=== PATIENT | male | born 1985 | race Caucasian/White ===

== ENCOUNTER 2019-11-05 20:27 | Emergency (ER) | payer OTHER, SELFPAY ==
--- NOTE | ~2019-11-05 | CT_ITS ---
EXAMINATION: CTA chest PE protocol EXAM DATE: 11/05/2019 22:07 INDICATION: Dyspnea. TECHNIQUE: Spiral CTA of the chest (pulmonary arteries) was performed with 100 cc Omnipaque 350 intr avenous contrast injection. Images were acquired during the pulmonary arterial phase. Coronal maxi mum intensity projection 3D-reconstructions were created by the technologist on dedicated workstation . Axial, coronal and sagittal reformatted images were reviewed. The dose-length product (DLP) for t his examination was 1001.25 mGy-cm. The exposure was tailored according to patient size (auto mA ex posure control), and iterative reconstruction (ASIR) was used as additional dose reduction technique. There is no prior study for comparison. FINDINGS: There are no pulmonary emboli in the 1st through 3rd order (central and interlobar) pulmon anna arteries. Some loss of attenuation in the left basilar segmental pulmonary arteries due to respi ratory motion, but no intraluminal filling defects suspected. No thoracic aortic dissection. The l ungs are clear. There are no pleural or pericardial effusions. Tracheobronchial tree is patent. There is no mediastinal, hilar or axillary lymphadenopathy. There is no pneumothorax. Heart norm al in size. No evidence of coronary arterial calcification. Mild hepatic steatosis and mild scatte red transverse colonic diverticulosis. The bones are unremarkable. IMPRESSION: 1. Limited left basilar segmental evaluation, but no pulmonary emboli are suspected. 2. No acute cardiopulmonary findings. 3. Hepatic steatosis. 4. Colonic diverticulosis. Reviewed, dictated and finalized at location A. IMPRESSION: 1. Limited left basilar segmental evaluation, but no pulmonary emboli are susp ected. 2. No acute cardiopulmonary findings. 3. Hepatic steatosis. 4. Colonic diverticulosis.
--- NOTE | 2019-11-05 20:33 | ED.GENADULT ---
HPI - General Adult General Chief complaint: Shortness of Breath/Dyspnea Stated complaint: sob Time Seen by Provider: 11/05/19 20:28 Source: patient and family Mode of arrival: ambulatory Limitations: no limitations History of Present Illness HPI narrative: Patient is a 34-year-old male who presents for a week long history of intermittent shortness of breath. Patient states that shortness of breath seems to come and go. He denies fever, cough, rhinorrhea, congestion. He saw his primary care physician yesterday and had a negative chest x-ray. Patient without any coronavirus exposures to his knowledge. He has been mostly at home aside from still going to his place of work. No leg swelling, leg pain, recent travel, history of blood clot, redness or rashes. No chest pain. No pleuritic pain. Patient is a daily smoker, his primary care provider prescribed him an albuterol inhaler without much improvement in his symptoms. Patient stated his dyspnea was worse this evening which is why he came to the emergency department. Patient is able to ambulate, able to speak in full sentences without difficulty. No history of asthma, allergies. He denies history of anxiety. Related Data Home Medications Medication Instructions Recorded Confirmed amlodipine benzoate 2.5 mg PO DAILY 11/05/19 Allergies Allergy/AdvReac Type Severity Reaction Status Date / Time No Known Allergies Allergy Verified 11/05/19 20:41 Review of Systems Review of Systems: Narrative: CONSTITUTIONAL: Denies fever, chills, or sweats. EYES: Denies visual changes, redness, or discharge. ENT: Denies rhinorrhea, congestion, sore throat, or otalgia. CARDIOVASCULAR: Denies chest pain, palpitations, or edema. RESPIRATORY: Denies cough, reports intermittent shortness of breath GASTROINTESTINAL: Denies abdominal pain, nausea, vomiting, or diarrhea. GENITOURINARY: Denies dysuria or hematuria. SKIN: Denies rash or itching. MUSCULOSKELETAL: Denies back pain, joint pain, or myalgia. NEUROLOGIC: Denies headache, numbness, or weakness. PSYCHIATRIC: Denies history of anxiety or depression. [facility] Past Medical History Medical History (Updated 11/05/19 @ 22:19 by Breann Atwood MD) Hypertension Surgical History Surgical History (Updated 11/05/19 @ 21:03 by Breann Atwood MD) History of ankle surgery Social History Social History (Updated 11/05/19 @ 21:03 by Breann Atwood MD) Smoking status: Current every day smoker Tobacco type: cigarettes Alcohol intake: current Substance use: never Gender identity (if verbalized by the patient): Male Exam Narrative: Exam Narrative: GENERAL: Awake, alert, conversant HEAD: Normocephalic, atraumatic. EYES: PERRLA and EOMI. ENT: Nares clear, no rhinorrhea or epistaxis. Mucous membranes moist. NECK: Supple. CHEST: No respiratory distress, breathing even and non labored, no wheezing, no rhonchi, no consolidating sounds, no crackles HEART: Regular rate, sinus rhythm ABDOMEN:Non distended, non tender EXTREMITIES: Normal range of motion. No edema. No calf pain or tenderness. SKIN: Warm, dry, no rash. NEURO:No focal deficits. Alert and oriented x3 Course Course Emergency Course: The patient presented for evaluation of shortness of breath. This is been intermittent for the patient, but worsened this evening so he sought care at our emergency department. At the time of assessment, ABCs are intact and vital signs are stable. Pulse ox is 100% on room air. Patient has no respiratory distress, he is able to provide full history, speak in full sentences without any difficulty. I do not appreciate any wheezing, crackles or consolidating sounds on auscultation of his lungs. Laboratory work-up is reassuring. Patient without hypoxemia. Electrolytes are normal. He has a mild transaminitis, evidence of hepatic steatosis on his CT scan, which I did discuss with the patient. CT of the chest shows no evidence of blood clot, e
[2019-11-05 20:37] VITALS: BP 170/102; PULSE 100; RESP 22; TEMP 36.4; O2SAT 100
[2019-11-05 20:43] VITALS: PULSE 105
--- NOTE | 2019-11-05 20:50 | ECG_ITS ---
Measurements Intervals [place] Rate: 97 P: 72 MO: 166 QRS: 67 QRSD: 94 T: 16 QT: 346 QTc: 440 Interpretive Statements SINUS RHYTHM NONSPECIFIC T-WAVE ABNORMALITY- INFERIOR LEADS BASELINE ARTIFACT- I, II, III, AVR, AVL, AVF, V1, V4-V6 BORDERLINE ECG Electronically Signed On 11-06-2019 7:12:36 CDT by Chano Morales D.O.
[2019-11-05 21:00] VITALS: O2SAT 97
[2019-11-05 21:17] LABS: Basophils Percent Auto 0.3 % (0.2-1.2); Eosinophils Absolute Auto 0.2 K/mm3 (0-0.3); Eosinophils Percent Auto 1.9 % (0-4.4); Hematocrit 44.7 % (42.0-52.0); Hemoglobin 15.3 g/dL (14.0-18.0); Immature Granulocyte Absolute 0.02 K/mm3 (0.00-0.031); Immature Granulocyte Percent A 0.3 % (0-0.5); Lymphocytes Percent Auto 40.3 % (18.3-44.2); Mean Corpuscular HGB Conc 34.2 g/dl (32-36); Mean Corpuscular Hemoglobin 30.1 pg (26-34); Mean Platelet Volume 10.2 fl (7.4-10.4); Monocytes Absolute Auto 0.6 K/mm3 (0.1-0.6); Neutrophils Percent Auto 50.2 % (45.5-73.1); Platelet Count Result 245 k/mm3 (150-375); Red Blood Count 5.08 M/mm3 (4.6-6.20); Red Cell Distribution Width 12.3 % (11.5-14.5)
[2019-11-05 21:22] LABS: Alveolar/Arterial O2 Gradient 8.9 mmHg; Base Excess ABG 1.6 mEq/l (+/-2.0); Carboxyhemoglobin 1.1 % THb (0-2.0); Fractional Inspired Oxygen 21 %; HCO3 ABG 24.3 mEq/l (22.0-26.0); Methemoglobin ABG 0.3 %THb (0-1.5); Oxygen Content ABG 20.8 %vol (16.0-22.0); Oxygen Saturation ABG 98.1 % (95.0-100.0); Oxyhemoglobin 96.2 % THb (90.0-100.0); PCO2 ABG 32.9 mmHg (35.0-45.0); PO2 ABG 101.4 mmHg (80.0-100.0); PO2 FiO2 Ratio Arterial Blood 4.83 %; Reduced Hemoglobin 2.4 %THb (0-5.0); Total Hemoglobin 15.3 g/dL (12.0-18.0); pH ABG 7.486 (7.350-7.450)
[2019-11-05 21:23] LABS: Device ROOM AIR; Modified Allen's Test Pass; Site Drawn LEFT RADIAL
[2019-11-05 21:32] LABS: NT Pro B Type Natriuretic Pept 22 PG/ML (5-100)
[2019-11-05 21:37] LABS: Prothrombin Time 12.5 Seconds (11.1-14.7)
[2019-11-05 21:38] LABS: Partial Thromboplastin Time 32.2 SECONDS (22.3-36.8)
[2019-11-05 21:41] VITALS: BP 143/94; PULSE 97; RESP 11; O2SAT 98
[2019-11-05 21:43] LABS: Alanine Aminotransferase 98 U/L (4-50); Albumin Level 4.5 g/dL (3.5-5.1); Alkaline Phosphatase 77 U/L (38-126); Aspartate Amino Transferase 64 U/L (17-59); Bilirubin,Total 0.5 mg/dL (0.2-1.3); Blood Urea Nitrogen 15 mg/dL (9-20); CRP 1.7 mg/dL (<1.0); Calcium 9.3 mg/dL (8.4-10.2); Carbon Dioxide 23 mmol/L (22-30); Chloride 107 mmol/L (98-107); Estimated CRCL calculation 123 ml/min; Estimated Glomerular Filt Rate > 60; Glucose 148 mg/dL (75-110); Lactate Dehydrogenase 510 U/L (313-618); Potassium 3.4 mmol/L (3.4-5.0); Sodium 140 mmol/L (137-145)
[2019-11-05 21:52] LABS: Troponin I < 0.012 ng/mL (0.000-0.034)
[2019-11-05 22:52] VITALS: BP 134/99; PULSE 91; RESP 11; TEMP 36.6; O2SAT 99
== END 2019-11-05 22:54 | disposition home or self-care (01) ==
PROVIDERS: Emergency Provider Emergency Medicine
DX: R06.09 Other forms of dyspnea (principal); I10 Essential (primary) hypertension; F17.210 Nicotine dependence, cigarettes, uncomplicated; R94.31 Abnormal electrocardiogram [ECG] [EKG]; K76.0 Fatty (change of) liver, not elsewhere classified; K57.90 Diverticulosis of intestine, part unspecified, without perforation or abscess without bleeding
CPT/HCPCS: 36415; 36600; 71275; 80053; 82375; 82728; 82805; 83050; 83615; 83880; 84484; 85025; 85610; 85730; 86140; 93005; 99284; Q9967

== ENCOUNTER 2021-02-14 11:35 | Emergency (ER) | payer OTHER, SELFPAY ==
[2021-02-14 11:45] VITALS: BP 146/89; PULSE 95; RESP 18; TEMP 36.3; O2SAT 98
--- NOTE | 2021-02-14 12:36 | ED.URI ---
HPI - URI/Sore Throat General Chief Complaint: Upper Respiratory Infection Stated Complaint: upper respiratory infection Time Seen by Provider: 02/14/21 12:05 Source: patient Mode of arrival: ambulatory Limitations: no limitations History of Present Illness HPI Narrative: Patient here with rest of family to be checked for upper respiratory infection or possibly Covid patient has history of hypertension he is an occasional smoker started having symptoms on Sunday which include respiratory coughing sinus drainage and not feeling well Related Data Home Medications Medication Instructions Recorded Confirmed amlodipine benzoate 2.5 mg PO DAILY 11/05/19 02/14/21 Allergies Allergy/AdvReac Type Severity Reaction Status Date / Time No Known Allergies Allergy Verified 02/14/21 11:43 Review of Systems Review of Systems: Narrative: CONSTITUTIONAL: Denies fever, had chills, sweats. EYES: Denies visual changes, redness, discharge. ENT: Has rhinorrhea, has congestion, sore throat, otalgia. CARDIOVASCULAR: Denies chest pain, palpitations, edema. RESPIRATORY: Denies dyspnea, wheezing, has cough GASTROINTESTINAL: Denies abdominal pain, nausea, vomiting, diarrhea. GENITOURINARY: Denies dysuria, hematuria, abnormal discharge SKIN: Denies rash or itching. NEUROLOGIC: Denies numbness, or focal weakness. PSYCHIATRIC: Denies anxiety or depression. PMFSH Past Medical History Medical History Hypertension Surgical History Surgical History History of ankle surgery Social History Social History Smoking status: Current every day smoker Tobacco type: cigarettes Alcohol intake: current Substance use: never Gender identity (if verbalized by the patient): Male Comments At time of signature, I agree with nursing past medical, surgical, social and family history. There is no relevant family history pertinent to the presenting complaint. Exam Narrative: Exam Narrative: GENERAL: This is a well-nourished, well-developed patient, in mild distress. HEAD: normocephalic, atraumatic. EYES: . Sclera clear/white. Vision is grossly intact. EARS: External ears normal, auditory canals clear on left erythema on right and without drainage, TMs normal without perforation. Hearing grossly intact. NOSE: External nose normal with nasal discharge, nares without redness, has rhinorrhea. THROAT: Mucous membranes moist, posterior pharynx erythema NECK: Neck supple, non-tender CARDIOVASCULAR: Regular rate and rhythm without murmurs, gallops, or rubs. RESPIRATORY: Clear to auscultation. Breath sounds equal bilaterally. No wheezes, rales, or rhonchi. GASTROINTESTINAL: Abdomen soft, SKIN: warm, intact with no suspicious lesions or rash, good texture and turgor. NEURO: awake, alert, and oriented to person, place and time. There were no obvious focal neurologic abnormalities. Steady gait EXTREMITIES: Normal range of motion. BACK: Nontender without deformity Course Course Emergency Course: Patient comes here with upper respiratory symptoms of a cold sinus drainage and not feeling well with some chills on Sunday. Symptoms started on Sunday Covid test negative Started on Tessalon Perles, Mucinex, steroids, can continue DayQuil MDM - URI/Sore Throat Differential Diagnosis Differential diagnosis: Likely upper respiratory infection, otitis media, sinusitis, viral infection, bronchitis, pharyngitis and other Critical Care Time Critical Care Time Critical Care Time: No Discharge Plan Discharge Clinical Impression: Upper respiratory infection Qualifiers: URI type: unspecified URI Qualified Code(s): J06.9 - Acute upper respiratory infection, unspecified Patient Disposition: Home, Self-Care Condition: Stable Instructions: Upper Respiratory Infection (DC) Additional Instr
== END 2021-02-14 12:40 | disposition home or self-care (01) ==
PROVIDERS: Emergency Provider Nurse Practitioner
DX: J06.9 Acute upper respiratory infection, unspecified (principal); Z20.822 Contact with and (suspected) exposure to COVID-19; F17.210 Nicotine dependence, cigarettes, uncomplicated; I10 Essential (primary) hypertension
CPT/HCPCS: 87426; 99213; C9803; G0463

== ENCOUNTER 2021-11-20 10:15 | Emergency (ER) | payer OTHER, SELFPAY ==
--- NOTE | ~2021-11-20 | XR_ITS ---
XR chest 2V DATE: 11/20/2021 10:53 INDICATION: Cough, fever, diminished breath sounds in the lower lobes TECHNIQUE: 2 views COMPARISON: CT pulmonary scan FINDINGS: Normal heart size. No hilar or mediastinal enlargement. No pulmonary infiltrate or consolid ation, pleural effusion or pulmonary vascular congestion or pneumothorax. IMPRESSION: No active cardiopulmonary disease Reviewed, dictated and finalized at location A.
[2021-11-20 10:25] VITALS: BP 168/92; PULSE 80; RESP 18; TEMP 36.3; O2SAT 98
--- NOTE | 2021-11-20 10:28 | ED.GENADULT ---
HPI - General Adult General Chief complaint: Upper Respiratory Infection Stated complaint: cold symptoms Time Seen by Provider: 11/20/21 10:28 Source: patient Mode of arrival: ambulatory Limitations: no limitations History of Present Illness HPI narrative: 36-year-old male patient presents to the [facility] with complaints of cold symptoms for the past 3 days. Patient states he was running a fever as high as 101 about 3 days ago with cough, congestion and runny nose. Patient states he is vaccinated against COVID but has not tested himself for COVID. Patient was sent home from work due to the symptoms. Colleague denies any fevers today states he still has congestion. Denies any chest pain or shortness of breath. Patient does have history of smoking. Related Data Home Medications Medication Instructions Recorded Confirmed No Home Medications 11/20/21 11/20/21 Allergies Allergy/AdvReac Type Severity Reaction Status Date / Time No Known Allergies Allergy Verified 11/20/21 10:34 Review of Systems Review of Systems: CONSTITUTIONAL: Positive subjective fever, chills, or sweats. EYES: Denies visual changes, redness, or discharge. ENT: Positive rhinorrhea, congestion, denies sore throat, or otalgia. CARDIOVASCULAR: Denies chest pain, palpitations, or edema. RESPIRATORY: Positive cough, denies dyspnea. GASTROINTESTINAL: Denies abdominal pain, nausea, vomiting, or diarrhea. GENITOURINARY: Denies dysuria or hematuria. SKIN: Denies rash or itching. MUSCULOSKELETAL: Denies back pain, joint pain, or myalgia. NEUROLOGIC: Denies headache, numbness, or weakness. PSYCHIATRIC: Denies anxiety or depression. [facility] Past Medical History Medical History Hypertension Surgical History Surgical History History of ankle surgery Social History Social History Smoking status: Current every day smoker Tobacco type: cigarettes Alcohol intake: current Substance use: never Gender identity (if verbalized by the patient): Male Comments At the time of my signature I agree with nursing past medical history, surgical, social, and family history. There is no relevant family history pertinent to the presenting complaint. Exam Narrative: GENERAL: Well-appearing, well-nourished, and in no acute distress. HEAD: Normocephalic, atraumatic. EYES: PERRLA and EOMI. ENT: Nares with erythema and edema noted bilaterally, no rhinorrhea or epistaxis. Mucous membranes moist. Posterior pharynx with no erythema, tonsillar lodgment, exudates or lesions present. Bilateral TMs are clear no erythema or foreign bodies to the canal. NECK: Supple. No lymphadenopathy CHEST: Decreased lung sounds noted to bilateral lower lobes on auscultation. No respiratory distress. Patient able to talk in clear complete sentences. HEART: Regular rate and rhythm. No murmur heard. Normal peripheral pulses. ABDOMEN: Soft, nontender, nondistended, normal active bowel sounds. EXTREMITIES: Normal range of motion. No edema. SKIN: Warm, dry, no rash. NEURO: No focal deficits. Alert and oriented x3. Course Course Level of Care: Express Care Visit Reevaluation(s) Reevaluation #1: Reevaluated patient notified him that his COVID rapid is negative as well as his flu is negative and the x-ray is clear. Discussed with patient that since he was running a fever and has COVID-like symptoms we will go ahead and follow CDC guidelines of 5-day quarantine and he can return to work without restrictions on Sunday, November 23. Patient verbalized understanding denies any other questions or concerns at this time. Date: 11/20/21 Time: 11:13 Vital Signs Vital signs: Vital Signs Temperature 36.3 C L 11/20/21 10:25 Pulse Rate 80 11/20/21 10:25 Respiratory Rate 18 11/20/21 10:25 Blood Pressure 168/92 H 11/20/21 10:25 Pulse
== END 2021-11-20 11:13 | disposition home or self-care (01) ==
PROVIDERS: Emergency Provider Nurse Practitioner Family
DX: J06.9 Acute upper respiratory infection, unspecified (principal); I10 Essential (primary) hypertension; F17.210 Nicotine dependence, cigarettes, uncomplicated; Z20.822 Contact with and (suspected) exposure to COVID-19
CPT/HCPCS: 71046; 87426; 87804; 99213; C9803; G0463

== ENCOUNTER 2022-06-11 10:04 | Emergency (ER) | payer OTHER, SELFPAY ==
--- NOTE | ~2022-06-11 | XR_ITS ---
EXAMINATION: XR knee RT min 4V DATE: 06/11/2022 10:41 INDICATION: Nontraumatic right knee pain and swelling TECHNIQUE: Weight bearing anteroposterior and [place]gu[place], sunrise, and flexed lateral views of the rig ht knee were obtained COMPARISON: None. FINDINGS: Alignment is normal. No fracture. Joint spaces appear relatively preserved in all 3 compartments. Th ere are tiny marginal osteophytes in the medial and lateral compartments. Central subchondral osteoph yte at the cephalad aspect of the trochlear groove suggesting the region of high-grade chondromalacia . Moderate-sized right knee joint effusion. Soft tissues are otherwise unremarkable. IMPRESSION: 1. Moderate-sized right knee joint effusion. 2. 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 Reviewed, dictated and finalized at location A. Y DRIER IMPRESSION: 1. Moderate-sized right knee joint effusion. 2. Mild tricompartmental osteoarthritis with suggestion of a region of high-gra de chondromalacia with central subchondral osteophyte at the trochlear groove.
[2022-06-11 10:15] VITALS: BP 149/93; PULSE 73; RESP 18; TEMP 36.3; O2SAT 98
--- NOTE | 2022-06-11 10:25 | ED.EXTPRO ---
HPI - Extremity Problem General Chief complaint: Extremity Problem,Nontraumatic Stated complaint: Rt Knee Pain and Swelling Time Seen by Provider: 06/11/22 10:06 Source: patient and family Mode of arrival: ambulatory Limitations: no limitations History of Present Illness HPI Narrative: 37-year-old male presents to clinic for complaints of pain and swelling to his right knee for the past 3 days. Patient reports he has a history of swelling to his knee and had negative x-rays completed approximately 2 years ago. Patient reports that he has since established with new primary care provider but has not discussed any swelling. Patient has not tried taking any [id number] medications for her symptoms. Patient denies recent injury. Patient denies erythema, bruising, numbness or tingling MD Complaint: extremity pain and extremity swelling Onset (ago): day(s) (3) Location: right Exacerbating factors: range of motion Associated symptoms: denies other symptoms Related Data Home Medications Medication Instructions Recorded Confirmed atorvastatin 20 mg tablet 20 mg PO DAILY 06/11/22 06/11/22 ergocalciferol (vitamin D2) 1,250 1,250 mcg PO WEEKLY 06/11/22 06/11/22 mcg (50,000 unit) capsule lisinopril 10 mg tablet 10 mg PO DAILY 06/11/22 06/11/22 omeprazole 20 mg capsule,delayed 20 mg PO DAILY 06/11/22 06/11/22 release Allergies Allergy/AdvReac Type Severity Reaction Status Date / Time No Known Allergies Allergy Verified 06/11/22 10:06 Review of Systems Constitutional: Constitutional: Denies chills, Denies fatigue, Denies fever(s) and Denies weakness ENT: Denies dizziness Cardiovascular: Cardiovascular: Denies chest pain Gastrointestinal: Gastrointestinal: Denies abdominal pain, Denies diarrhea, Denies nausea and Denies vomiting Musculoskeletal: Musculoskeletal: Reports arthralgias and Reports joint swelling Comments: right knee pain and swelling Integumentary/Breasts: Skin/Breast: Denies rash Allergic/Immunologic: Allergic/Immunologic: Denies throat swelling, Denies tongue swelling and Denies wheezing PMFSH Past Medical History Medical History Hypertension Surgical History Surgical History History of ankle surgery Social History Social History Smoking status: Current every day smoker Tobacco type: cigarettes Alcohol intake: current Substance use: never Gender identity (if verbalized by the patient): Male Comments At time of signature, I agree with nursing past medical, surgical, social and family history. There is no relevant family history pertinent to the presenting complaint. Exam Const: General: healthy appearing Nutritional Appearance: well nourished Orientation/consciousness: patient oriented x3 Limitations: no limitations Neck: Neck: normal visual inspection Chest: Chest palpation & inspection: normal inspection of the chest Resp: Effort & Inspection: normal respiratory effort and not labored Auscultation: clear to auscultation bilaterally, no crackles, no rales, no rhonchi and no wheezes Cardio: Rate: regular rate Rhythm: regular rhythm Heart sounds: no murmurs Skin: General skin exam: normal color Rashes: no rashes Wounds: no wounds Neuro: General: patient oriented x3 Cranial nerves: Yes Nystagmus not present Speech: normal speech Extrem: General: no pedal edema Other: Mild amount of swelling noted to lateral aspect of right knee. There is increased pain noted to right knee upon palpation and range of motion. There is no erythema, warmth, bruising or signs of infection noted. Psych: Mental Status: mental status grossly normal Affect: normal affect Attitude: cooperative Course Course Level of Care: Express Care Visit Vital Signs Vital signs: Vital Signs Temperature 36.3 C L 06/11/22
== END 2022-06-11 11:15 | disposition home or self-care (01) ==
PROVIDERS: Emergency Provider Nurse Practitioner Family; PCP Family Medicine
DX: M25.561 Pain in right knee (principal); I10 Essential (primary) hypertension; F17.210 Nicotine dependence, cigarettes, uncomplicated
CPT/HCPCS: 73564; 99213; G0463

== ENCOUNTER 2022-11-21 16:42 | Emergency (ER) | payer OTHER, SELFPAY ==
--- NOTE | ~2022-11-21 | XR_ITS ---
EXAMINATION: XR chest 2V Exam Date/Time: 11/21/2022 17:13 CDT HISTORY: cough chest pain with congestion Comparison: 11/20/2021. RESULT: Lines, tubes, and devices: None. Lungs and pleura: Clear. Cardiomediastinal silhouette: Stable. Other: No acute osseous or upper abdominal finding. IMPRESSION: No acute cardiopulmonary process. Reviewed, dictated and finalized at location K.
--- NOTE | 2022-11-21 16:50 | ED.URI ---
HPI - URI/Sore Throat General Chief Complaint: Upper Respiratory Infection Stated Complaint: congestion Time Seen by Provider: 11/21/22 17:07 Source: patient and RN notes reviewed Mode of arrival: ambulatory Limitations: no limitations History of Present Illness HPI Narrative: 37-year-old male presents with concern for sore throat, head congestion, pressure in the ears, productive cough, low-grade fever. He reports aching in his back and chest from coughing. He reports symptoms started Sunday. Reports he took a negative COVID test at home, but his work is requiring him to have a official COVID test. He reports he has been taking DayQuil and NyQuil. MD elicited complaint: cough Related Data Home Medications Medication Instructions Recorded Confirmed atorvastatin 20 mg tablet 20 mg PO DAILY 06/11/22 11/21/22 ergocalciferol (vitamin D2) 1,250 1,250 mcg PO WEEKLY 06/11/22 11/21/22 mcg (50,000 unit) capsule lisinopril 10 mg tablet 10 mg PO DAILY 06/11/22 11/21/22 omeprazole 20 mg capsule,delayed 20 mg PO DAILY 06/11/22 11/21/22 release Allergies Allergy/AdvReac Type Severity Reaction Status Date / Time No Known Allergies Allergy Verified 11/21/22 16:54 Review of Systems Review of Systems: CONSTITUTIONAL: Reports malaise, low-grade fever. EYES: Denies visual changes, redness, or discharge. ENT: Reports rhinorrhea, congestion, otalgia and sore throat. CARDIOVASCULAR: Denies chest pain, palpitations, or edema. RESPIRATORY: Reports productive cough. Denies dyspnea. GASTROINTESTINAL: Denies abdominal pain, nausea, vomiting, diarrhea SKIN: Denies rash or itching. MUSCULOSKELETAL: Denies myalgia. NEUROLOGIC: Denies headache. All systems reviewed & are unremarkable except as noted in HPI and below PMFSH Past Medical History Medical History Hypertension Surgical History Surgical History History of ankle surgery Social History Social History Smoking status: Current every day smoker Tobacco type: cigarettes Alcohol intake: current Substance use: never Gender identity (if verbalized by the patient): Male Comments At time of signature, agree with nursing past medical, surgical, social and family history. There is no relevant family history pertinent to the presenting complaint Exam Narrative: GENERAL: Nontoxic-appearing and in no acute distress. HEAD: Normocephalic EYES: PERRLA, conjunctivae clear ENT: Nares clear, turbinates edematous and erythematous, clear discharge. Mucous membranes moist. TM pearly leiva with dull light reflex bilaterally; no tragal tenderness. Oropharynx not erythematous without lesions. Tonsils not enlarged and without exudate, no drooling, no hoarseness, no trismus, uvula midline. NECK: Supple. No lymphadenopathy CHEST: Clear to auscultation, breath sounds equal. No wheezing, rhonchi, rales, or stridor. No respiratory distress, speaks in full sentences. HEART: Regular rate and rhythm. No murmur heard. SKIN: Warm, dry, no rash. NEURO: Alert and oriented x3. PSYCH: Normal mood and affect Course Course Emergency Course: Patient is aware of diagnosis, understands and agrees to treatment plan. Anticipatory guidance given. Patient agrees to follow-up as directed and is aware of reasons to seek care at the emergency department. Portions of this record may have been created with voice recognition software Level of Care: Express Care Visit Vital Signs Vital signs: Reviewed. MDM - URI/Sore Throat MDM Narrative Medical decision making narrative: Differential diagnosis considered: Cisneros virus, strep pharyngitis, allergic rhinitis, upper respiratory tract infection, sinusitis, rhinosinusitis, nasopharyngitis. viral pharyngitis, otitis media, otitis externa, pneumonia, bronchitis, viral cough syndrome, deb
[2022-11-21 16:52] VITALS: BP 135/82; PULSE 69; RESP 20; TEMP 36.7; O2SAT 97
[2022-11-21 16:55] VITALS: BP 135/82; PULSE 69; RESP 20; TEMP 36.7; O2SAT 97
== END 2022-11-21 17:47 | disposition home or self-care (01) ==
PROVIDERS: Emergency Provider Nurse Practitioner; PCP Family Medicine
DX: J06.9 Acute upper respiratory infection, unspecified (principal); R05.9 Cough, unspecified; Z20.822 Contact with and (suspected) exposure to COVID-19; F17.210 Nicotine dependence, cigarettes, uncomplicated; I10 Essential (primary) hypertension
CPT/HCPCS: 71046; 87081; 87426; 87880; 99213; C9803; G0463

== ENCOUNTER 2024-05-15 11:47 | Emergency (ER) | payer OTHER, SELFPAY ==
[2024-05-15] VITALS (8 sets, daily range): BP systolic 168–181; BP diastolic 106–119; PULSE 76–86; RESP 13–22; TEMP 36.5; O2SAT 94–97
--- NOTE | ~2024-05-15 | XR_ITS ---
EXAMINATION: XR chest 1V DATE: 05/15/2024 12:52 INDICATION: Chest pain and cough. TECHNIQUE: A single frontal view of the chest was obtained. COMPARISON: Chest 2 views 11/21/2022, CT abdomen and pelvis 05/15/2024 FINDINGS: There is no pneumonia, pleural effusion, or pneumothorax. The heart size is normal. IMPRESSION: 1. No acute cardiopulmonary disease. Reviewed, dictated and finalized at location A.
--- NOTE | ~2024-05-15 | XR_ITS ---
HISTORY: left chest pain while coughing COMPARISON: None TECHNIQUE: Multiple views of the left ribs were performed FINDINGS: No acute displaced fracture is appreciated. The adjacent left lung is unremarkable. Bone mineralization is age-appropriate. IMPRESSION: No acute displaced rib fracture, as detailed above. Reviewed, dictated and finalized at location A.
--- NOTE | ~2024-05-15 | CT_ITS ---
EXAMINATION: CT abdomen pelvis w con DATE: 05/15/2024 12:46 INDICATION: Upper abdominal pain. TECHNIQUE: Computed tomography (CT) of the abdomen and pelvis was performed with 100 mL Omnipaque 350 intravenous contrast. Automated exposure control and iterative reconstruction technique were employe d. The dose-length product was 1543.50 mGy-cm. COMPARISON: Chest CT 11/05/2019 FINDINGS: The visualized portions of lung bases demonstrate mild atelectasis. No pleural effusion. Th e heart size is normal. No pericardial effusion. The liver, gallbladder, spleen, pancreas, adrenal gl ands, and kidneys are normal. There is diverticulosis of the colon without evidence of diverticulitis . There are no dilated loops of bowel. The appendix is normal. There are no pathologically enlarged l ymph nodes. There is no ascites. There is mild thoracic spondylosis and moderate lumbar spondylosis. IMPRESSION: 1. No etiology for the patient's symptoms. Reviewed, dictated and finalized at location A.
[2024-05-15 12:05] LABS: Basophils Percent Auto 0.5 % (0.2-1.2); Eosinophils Absolute Auto 0.1 K/mm3 (0-0.3); Eosinophils Percent Auto 1.3 % (0-4.4); Hematocrit 44.1 % (42.0-52.0); Hemoglobin 14.7 g/dL (14.0-18.0); Immature Granulocyte Absolute 0.03 K/mm3 (0.00-0.031); Immature Granulocyte Percent A 0.4 % (0-0.5); Lymphocytes Percent Auto 23.4 % (18.3-44.2); Mean Corpuscular HGB Conc 33.3 g/dl (32-36); Mean Corpuscular Hemoglobin 28.5 pg (26-34); Mean Corpuscular Volume 85.6 fl (80-100); Mean Platelet Volume 9.2 fl (7.4-10.4); Monocytes Absolute Auto 0.4 K/mm3 (0.1-0.6); Monocytes Percent Auto 4.8 % (2.6-8.5); Neutrophils Absolute Auto 5.9 K/mm3 (1.3-6.7); Neutrophils Percent Auto 69.6 % (45.5-73.1); Platelet Count Result 228 k/mm3 (150-375); Red Blood Count 5.15 M/mm3 (4.6-6.20); Red Cell Distribution Width 12.2 % (11.5-14.5); White Blood Count 8.5 K/mm3 (4.5-10.0)
[2024-05-15 12:16] LABS: Alanine Aminotransferase 36 U/L (6-50); Albumin Level 4.7 g/dL (3.5-5.1); Alkaline Phosphatase 96 U/L (38-126); Anion Gap 10 mmol/L (4-12); Aspartate Amino Transferase 36 U/L (17-59); Blood Urea Nitrogen 11 mg/dL (9-20); Calcium 9.7 mg/dL (8.4-10.2); Carbon Dioxide 25 mmol/L (22-30); Chloride 103 mmol/L (98-107); Estimated CRCL calculation 173 ml/min; Estimated Glomerular Filt Rate > 60; Glucose 123 mg/dL (65-110); Lipase 118 U/L (23-300); Potassium 3.8 mmol/L (3.4-5.0); Sodium 138 mmol/L (137-145)
--- NOTE | 2024-05-15 12:17 | ED_ITS ---
HPI - Abdominal Pain General Chief Complaint: Abdominal Pain Stated Complaint: LUQ pain Time Seen by Provider: 05/15/24 12:10 Source: patient Mode of arrival: ambulatory Limitations: no limitations History of Present Illness HPI narrative: 39 years old white male came to the ED with left upper quadrant sharp stabbing pain started while sudden onset of coughing. He reports some runny nose postnasal discharge and intermittent coughing for the last few days. Two days ago he coughed very hard and developed sharp stabbing pain at the left upper quadrant which she get worse with deep breathing, raising left upper extremity, certain position and movement. He denies any fever, chills, nausea, vomiting, shortness of breath or radiation of pain. Related Data Home Medications Medication Instructions Recorded Confirmed atorvastatin 20 mg tablet 20 mg PO DAILY 06/11/22 11/21/22 ergocalciferol (vitamin D2) 1,250 1,250 mcg PO WEEKLY 06/11/22 11/21/22 mcg (50,000 unit) capsule lisinopril 10 mg tablet 10 mg PO DAILY 06/11/22 11/21/22 omeprazole 20 mg capsule,delayed 20 mg PO DAILY 06/11/22 11/21/22 release Allergies Allergy/AdvReac Type Severity Reaction Status Date / Time No Known Allergies Allergy Verified 05/15/24 11:48 Review of Systems Review of Systems: All systems reviewed & are unremarkable except as noted in HPI and below PMFSH Past Medical History Medical History Hypertension Surgical History Surgical History History of ankle surgery Social History Social History Smoking status: Current every day smoker Tobacco type: cigarettes Alcohol intake: current Substance use: never Gender identity (if verbalized by the patient): Male Exam Narrative: General appearance: Well-developed, well-nourished Skin: Normal color Head: Normocephalic, nontraumatic Eyes: Clear conjunctiva ENT: Oropharynx normal, ears normal, nose normal Neck: Supple, nontender Chest and respiratory: Airway patent, no respiratory distress, no accessory muscle use , diffuse tenderness left lower ribs and left lower quadrant, no bruises, no swelling or rash Heart: Regular rate/rhythm Abdomen: Soft, nontender, no organomegaly, quiet bowel sounds Vascular: Normal peripheral pulses, normal capillary refill. Musculoskeletal: Normal range of motion, nontender back Neurologic: Alert and oriented ?3, FLOOR COVERER APPRENTICE is normal as tested, no gross motor deficit Course Vital Signs Vital signs: Vital Signs Temperature 36.5 C 05/15/24 11:52 Pulse Rate 83 05/15/24 11:52 Respiratory Rate 13 05/15/24 11:52 Blood Pressure 181/119 H 05/15/24 11:52 Pulse Oximetry 97 05/15/24 11:52 Oxygen Delivery Room Air 05/15/24 11:52 Temperature 36.5 C 05/15/24 11:52 Pulse Rate 83 05/15/24 11:52 Respiratory Rate 13 05/15/24 11:52 Blood Pressure 181/119 H 05/15/24 11:52 Pulse Oximetry 97 05/15/24 11:52 Oxygen Delivery Room Air 05/15/24 11:52 MDM - Abdominal Pain MDM Narrative Medical decision making narrative: patient coughed hard, subsequently developed severe sharp stabbing pain left upper quadrant left lower ribs Vital signs showing blood pressure 181/119, physical examination showed tenderness left lower ribs and left upper quadrant Differential diagnosis include muscular strain, sprain, rib fracture, intra-abdominal pathology, pneumonia, pleurisy Blood workup today showed no significant abnormalities CT abdomen and pelvis with IV contrast showed no acute abnormalities Chest x-ray showed no acute abnormalities Left ribs showed no displaced fracture The pt was discharged to home.the pt,s condition upon discharge was fair,education was provided to the pt in reference to the final impression,discharge study results,treatment,prognosis and need for follow up . Differential Diagnosis Differential diagnosis: Likely other ( as above) Medical Records Attestation: I reviewed the patient's medical records. Lab Data Attestation: I reviewed the patient's lab results. 05/15/24 11:57 05/15/24 11:57 Labs: Lab Results 05/15/24 05/15/24 05/15/24 Range/Units 11:57 12:14 12:30 WBC 8.5 (4.5-10.0) K/mm3 RBC 5.15 (4.6-6.20) M/mm3 Hgb 14.7 (14.0-18.0) g/dL Hct 44.1 (42.0-52.0) % MCV 85.6 (80-100) fl MCH 28.5 (26-34) pg MCHC 33.3 (32-36) g/dl RDW 12.2 (11.5-14.5) % Plt Count 228 (150-375) k/mm3 MPV 9.2 (7.4-10.4) fl Immature Gran % (Auto) 0.4 (0-0.5) % Neut % (Auto) 69.6 (45.5-73.1) % Lymph % (Auto) 23.4 (18.3-44.2) % [place] % (Auto) 4.8 (2.6-8.5) % Eos % (Auto) 1.3 (0-4.4) % Baso % (Auto) 0.5 (0.2-1.2) % Lymph # (Auto) 2.00 (0.9-3.2) K/mm3 [place] # (Auto) 0.4 (0.1-0.6) K/mm3 Eos # (Auto) 0.1 (0-0.3) K/mm3 Baso # (Auto) 0.0 (0.0-0.1) K/mm3 Abs Immat Gran (auto) 0.03 (0.00-0.031) K/mm3 Absolute Neuts (auto) 5.9 (1.3-6.7) K/mm3 Absolute Nucleated RBC 0.000 (0.0-0.012) K/mm3 Nucleated RBC % 0.0 (0.0-0.2) % Sodium 138 (137-145) mmol/L Potassium 3.8 (3.4-5.0) mmol/L Chloride 103 (98-107) mmol/L Carbon Dioxide 25 (22-30) mmol/L Anion Gap 10 (4-12) mmol/L BUN 11 (9-20) mg/dL Creatinine 0.70 (0.7-1.3) mg/dL Estim Creat Clear Calc 173 ml/min Estimated GFR > 60 (59 - ) Glucose 123 H (65-110) mg/dL Calcium 9.7 (8.4-10.2) mg/dL Total Bilirubin 1.0 (0.2-1.3) mg/dL AST 36 (17-59) U/L ALT 36 (6-50) U/L Alkaline Phosphatase 96 (38-126) U/L Total Protein 8.0 (6.3-8.2) g/dL Albumin 4.7 (3.5-5.1) g/dL Lipase 118 (23-300) U/L Urine Color Yellow (Yellow) Urine Appearance Clear (Clear) Urine pH 5.5 (5.0-9.0) Ur Specific [place] 1.017 (1.001-1.035) Urine Protein Negative (Negative) mg/dL Urine Glucose (UA) Negative (Negative) mg/dL Urine Ketones Negative (Negative) mg/dL Ur Blood (Man) Negative (Negative) Urine Nitrate Negative (Negative) Urine Bilirubin Negative (Negative) Urine Urobilinogen 1.0 (<2.0) mg/dL Leukocyte Esterase Rfl Negative (Negative) VIRGIL/UL Influenza A (RT-PCR) Negative (Negative) Influenza B (RT-PCR) Negative (Negative) RSV (RT-PCR) Negative (Negative) SARS-CoV-2 RNA (RT-PCR) Negative (Negative) Imaging Data Radiologist's impression: ITS Impressions Abdomen/Pelvis CT 05/15/24 12:48 IMPRESSION: 1. No etiology for the patient's symptoms. Chest X-Ray 05/15/24 12:52 IMPRESSION: 1. No acute cardiopulmonary disease. Ribs X-Ray 05/15/24 13:50 IMPRESSION: No acute displaced rib fracture, as detailed above. Critical Care Time Critical Care Time Critical Care Time: No Discharge Plan Discharge Clinical Impression: Muscle strain Patient Disposition: Home, Self-Care Condition: Stable Instructions: Antibiotic Form Additional Instructions: Return if symptoms are worsening , call your family physician for appointment, take Tylenol as as needed for aches and pain, continue home medications. Prescriptions: New naproxen [Naprosyn] 500 mg tablet 500 mg PO BID PRN (Reason: pain) Qty: 14 0RF cyclobenzaprine 10 mg tablet 10 mg PO TID PRN (Reason: muscle spasm) Qty: 20 0RF No Action atorvastatin 20 mg tablet 20 mg PO DAILY lisinopril 10 mg tablet 10 mg PO DAILY omeprazole 20 mg capsule,delayed release(DR/EC) 20 mg PO DAILY ergocalciferol (vitamin D2) 1,250 mcg (50,000 unit) capsule 1,250 mcg PO WEEKLY methylprednisolone [Medrol (Ceferino)] 4 mg tablets,dose pack See Rx Instructions .ROUTE .COMPLEX Qty: 21 0RF Rx Instructions: orally per package directions Follow-up/Referrals: Vamshi,MD Rc [Primary Care Provider] -
[2024-05-15 12:22] LABS: Add Urine Microscopic? NO; Appearance Urine Clear (Clear); Bilirubin Urine Negative (Negative); Blood Urine Negative (Negative); Color Urine Yellow (Yellow); Glucose Urine UA Negative (Negative); Ketones Urine Negative (Negative); Leukocyte Esterase Ur Negative LEU/UL (Negative); Nitrate Urine Negative (Negative); Protein Urine Negative (Negative); Specific Grav Ur 1.017 (1.001-1.035); pH Urine 5.5 (5.0-9.0)
[2024-05-15 13:16] LABS: Influenza A QL RT-PCR Negative (Negative); Influenza B QL RT-PCR Negative (Negative); RSV RNA, RT-PCR Negative (Negative); SARS-CoV-2 RNA PCR Negative (Negative)
[2024-05-15] MEDS: KETOROLAC 30 MG/ML VIAL (*BKC) IV PUSH (14:15)
== END 2024-05-15 14:36 | disposition home or self-care (01) ==
PROVIDERS: Family Medicine; Emergency Provider Emergency Medicine; PCP Family Medicine
DX: S39.011A Strain of muscle, fascia and tendon of abdomen, initial encounter (principal); Z20.822 Contact with and (suspected) exposure to COVID-19; I10 Essential (primary) hypertension; F17.210 Nicotine dependence, cigarettes, uncomplicated; X50.9XXA Other and unspecified overexertion or strenuous movements or postures, initial encounter
CPT/HCPCS: 36415; 71045; 71100; 74177; 80053; 81003; 83690; 85025; 87637; 96374; 99284; J1885; Q9967

== ENCOUNTER 2024-10-23 14:34 | Emergency (ER) | payer OTHER, SELFPAY ==
[2024-10-23] VITALS (7 sets, daily range): BP systolic 147–174; BP diastolic 88–108; PULSE 87–102; RESP 16–18; TEMP 36.6–37.1; O2SAT 96–100
--- NOTE | ~2024-10-23 | XR_ITS ---
CHEST RADIOGRAPH CLINICAL HISTORY: SOA . COMPARISON: 05/15/2024 TECHNIQUE: Single portable view of the chest. FINDINGS The cardiomediastinal silhouette is unremarkable. The lungs are clear. Visualized osseous structures and soft tissues are unremarkable. IMPRESSION: No focal infiltrate or effusion. Reviewed, dictated and finalized at location A.
[2024-10-23] MEDS: FAMOTIDINE 20 MG/2 ML VIAL (14:55)
[2024-10-23] MEDS: methylPREDNISolone SOD SUCC 125 MG VIAL (14:55)
--- NOTE | 2024-10-23 14:55 | ECG_ITS ---
Test Date: 2024-10-23 15:17:45 Measurements Intervals [place] Rate: 91 P: 15 IN: 148 QRS: 19 QRSD: 85 T: 28 QT: 368 QTc: 454 Interpretive Statements SINUS RHYTHM POSSIBLE LEFT ATRIAL ENLARGEMENT POSSIBLE LEFT VENTRICULAR HYPERTROPHY BORDERLINE R WAVE PROGRESSION, ANTERIOR LEADS CONSIDER INFERIOR INFARCT, AGE INDETERMINATE ABNORMAL ECG No previous ECG available for comparison Electronically Signed On 10-24-2024 10:01:53 CDT by Chano Morales D.O.
[2024-10-23] MEDS: diphenhydrAMINE HCl INJ 50 MG/ML VIAL (14:56)
[2024-10-23] MEDS: EPINEPHrine HCL INJ 1 MG/ML AMPUL (14:56)
--- OUTSIDE RECORDS SUMMARY | 2024-10-23 14:59 | XMS_ITS | Clinical Summary ---
Author Organization [facility] Address [address] [place] [address] Care Team Providers Care Customer Care Coordinator Name Role Phone Rc Bonds Primary Care Provider [phone] Source Comments [facility],non-owned Affiliates and Associated Physician Practices is amultiple site organization consisting of ambulatory clinics and hospital sitesin [place], [place], [place] and [place]. This disclosure is being madepursuant to the Care Everywhere program and may not contain all information available regarding this patient. Last updated 18.[facility] Allergies No known active allergies Medications * Be aware that medications may not be up to date on this document. Alwaysverify current medications with the patient. Medication Sig Dispensed Refills Start Date End Date Status lisinopril (Prinivil; Zestril) 40 MG tablet Take 1 (one) tablet by mouth once daily Active atorvastatin (Lipitor) 80 MG tablet Take 1 (one) tablet by mouth at bedtime Active ergocalciferol (Drisdol) 1.25 MG (27996 UT) capsule Take 1 (one) capsule by mouth once daily Active metoprolol succinate XL 24hr (Toprol XL) 100 MG tablet Take 1 (one) tablet by mouth once daily Active omeprazole (PriLOSEC) 20 MG capsule Take 1 (one) capsule by mouth daily before breakfast Active ezetimibe (Zetia) 10 MG tablet Take 1 (one) tablet by mouth once daily Active loratadine (Claritin) 10 MG tablet Take 1 (one) tablet by mouth once daily Active icosapent ethyl (Vascepa) 1 g capsule Take 2 (two) capsules by mouth once daily Active Social History Tobacco Use Types Packs/Day Years Used Date Smoking Tobacco: Some Days Cigarettes Smokeless Tobacco: Never Tobacco Cessation:Ready to Q uit: Not Asked; Counseling Given: Not Answered Alcohol Use Standard Drinks/Week Comments Yes 12 (1 standard drink = 0.6 oz pu re alcohol) 2 days/week AUDIT-C Answer Date Recorded Q1: How often do you have a drink containing alc ohol? 2-3 times a week 07/18/2024 Q2: How many drinks containi ng alcohol do you have on a typical day when you are drinking? 10 or more 07/18/2024 Q3: How often do you have si x or more drinks on one occasion? Weekly 07/18/2024 Sex and Gender Information Value Date Recorded Sex Assigned at Not on file Gender Identity Not on file Sexual Orientation Not on file Last Filed Vital Signs Vital Sign Reading Time Taken Comments Blood Pressure 155/102 07/18/2024 4:55 PM OIL INSPECTOR Pulse 82 07/18/2024 4:55 PM OIL INSPECTOR Temperature 36.4 C (97.5 F) 07/18/2024 4:50 PM OIL INSPECTOR Respiratory Rate 18 07/18/2024 4:55 PM OIL INSPECTOR Oxygen Saturation 92% 07/18/2024 4:55 PM OIL INSPECTOR Inhaled Oxygen Concentration - - Weight 147 kg (324 lb) 07/18/2024 11:00 AM OIL INSPECTOR Height 180.3 cm (5' 11 ) 07/18/2024 11:00 AM OIL INSPECTOR Body Mass Index 45.19 07/18/2024 11:00 AM OIL INSPECTOR Plan of Treatment Health Maintenance Due Date Last Done Comments HIV SCREENING 1998 HEPATITIS C SCREENING 03/03/2001 DTAP/TDAP/TD VACCINES (1 - Tdap) 2002 HEPATITIS B VACCINE (1 of 3 - 19+ 3-dose series) 2002 PNEUMOCOCCAL VACCINE (1 of 2 - PCV) 2002 COVID-19 VACCINE ( - 2023-2 5 season) 2024 INFLUENZA VACCINE (#1) 2024 DEPRESSION SCREENING 07/23/2024 ZOSTER VACCINE (1 of 2) 2033 HIB VACCINE Aged Out No longer eligi ble based on patient's age to complete this topic HPV VACCINE Aged Out No longer eligi ble based on patient's age to complete this topic MENINGOCOCCAL (Group B) VACC INE SHARED DECISION-MAKING Aged Out No longer eligibl e based on patient's age to complete this topic MENINGOCOCCAL GROUPS A/C/Y/W VACCINE Aged Out No longer eligible b ased on patient's age to complete this topic Medical Devices Implanted Type Area Research/Program Director Device Identifier Shelf Expiration Date Model / Serial / Lot Cmpnt Fem Kn Rt 7 Crcte Rtn Bead Trthln - Sn/A Implanted:Qty: 1 on 07/18/2024 by Jasvir Prakash MD at [facility] Right: Knee [employer] 06/26/2029 5517-F-702 / N/A / [id number] Bsplt Tib Trthln 7 Kn Tritanium - Sn/A Implanted:Qty: 1 on 07/18/2024 by Jasvir Prakash MD at [facility] Right: Knee [employer] 05/22/2029 5536-B-700 / N/A / [id number] Ins Tib Trthln X3 7 10mm Kn Cndrl Stab B - Sn/A Implanted:Qty: 1 on 07/18/2024 by Jasvir Prakash MD at [facility] Right: Knee [employer] 03/19/2029 5531-G-710 -E / N/A / [id number] Cmpnt Ptlr 11mm 39mm Smtr Trthln - Sn/A Implanted:Qty: 1 on 07/18/2024 by Jasvir Prakash MD at [facility] Right: Knee [employer] 09/22/2028 5556-L-391 / N/A / [id number] Care Teams Customer Care Coordinator Relationship Specialty Start Date End Date Vamshi Rc [address] [place] [id number] PCP - General 07/18/24
--- OUTSIDE RECORDS SUMMARY | 2024-10-23 14:59 | XMS_ITS | CONTINUITY OF CARE DOCUMENT ---
Author Name morgan mora Address Unknown Organization [facility] Address [address] [place] [address] Phone [phone] Care Team Providers Care Ordnance Technician Name Role Phone Tita Saunders MD Unavailable Tita Saunders MD Unavailable INSURANCE PROVIDERS Payer name Policy type / Coverage type [place] red green party ID [facility] TRAFI insurance [employer] [id number] [facility] TRAFI insurance company [employer] [id number]
[2024-10-23 15:20] LABS: Basophils Percent Auto 0.4 % (0.2-1.2); Eosinophils Absolute Auto 0.2 K/mm3 (0-0.3); Eosinophils Percent Auto 2.5 % (0-4.4); Hematocrit 45.7 % (42.0-52.0); Hemoglobin 15.3 g/dL (14.0-18.0); Immature Granulocyte Absolute 0.03 K/mm3 (0.00-0.031); Immature Granulocyte Percent A 0.4 % (0-0.5); Lymphocytes Absolute Auto 2.66 K/mm3 (0.9-3.2); Lymphocytes Percent Auto 31.2 % (18.3-44.2); Mean Corpuscular HGB Conc 33.5 g/dl (32-36); Mean Corpuscular Hemoglobin 27.2 pg (26-34); Mean Corpuscular Volume 81.3 fl (80-100); Mean Platelet Volume 9.3 fl (7.4-10.4); Monocytes Absolute Auto 0.4 K/mm3 (0.1-0.6); Neutrophils Absolute Auto 5.2 K/mm3 (1.3-6.7); Neutrophils Percent Auto 60.5 % (45.5-73.1); Platelet Count Result 256 k/mm3 (150-375); Red Blood Count 5.62 M/mm3 (4.6-6.20); Red Cell Distribution Width 12.9 % (11.5-14.5); White Blood Count 8.5 K/mm3 (4.5-10.0)
--- OUTSIDE RECORDS SUMMARY | 2024-10-23 15:21 | XMS_ITS | CONTINUITY OF CARE DOCUMENT ---
Author Name morgan mora Address Unknown Organization [facility] Address [address] [place] [address] Phone [phone] Care Team Providers Care Manager Visual Name Role Phone Tita Saunders MD Unavailable Tita Saunders MD Unavailable INSURANCE PROVIDERS Payer name Policy type / Coverage type Robinson red alliance party ID [facility] [employer] insurance [employer] [id number] [facility] Wise Connect insurance company [id number]
--- OUTSIDE RECORDS SUMMARY | 2024-10-23 15:21 | XMS_ITS | Clinical Summary ---
Author Organization [facility] Address [address] [place] [address] Care Team Providers Care Supervisor Whipped Topping Name Role Phone Rc Bonds Primary Care Provider [phone] Source Comments [facility],non-owned Affiliates and Associated Physician Practices is amultiple site organization consisting of ambulatory clinics and hospital sitesin [place], [place], [place] and [place]. This disclosure is being madepursuant to the Care Everywhere program and may not contain all information available regarding this patient. Last updated 18.[facility] Allergies No known active allergies Medications * [...] at bedtime Active ergocalciferol (Drisdol) 1.25 MG (08978 UT) capsule Take 1 (one) capsule by [...] Comments Blood Pressure 155/102 07/18/2024 4:55 PM WHALE FISHERMAN Pulse 82 07/18/2024 4:55 PM WHALE FISHERMAN Temperature 36.4 C (97.5 F) 07/18/2024 4:50 PM WHALE FISHERMAN Respiratory Rate 18 07/18/2024 4:55 PM WHALE FISHERMAN Oxygen Saturation 92% 07/18/2024 4:55 PM WHALE FISHERMAN Inhaled Oxygen Concentration - - Weight 147 kg (324 lb) 07/18/2024 11:00 AM WHALE FISHERMAN Height 180.3 cm (5' 11 ) 07/18/2024 11:00 AM WHALE FISHERMAN Body Mass Index 45.19 07/18/2024 11:00 AM WHALE FISHERMAN Plan of Treatment Health Maintenance Due Date [...] this topic Medical Devices Implanted Type Area Engineering Technical Specialist Device Identifier Shelf Expiration Date Model / Serial / Lot Cmpnt Fem Kn Rt 7 Crcte Rtn Bead Trthln - Sn/A Implanted:Qty: 1 on 07/18/2024 by Jasvir Prakash MD at [facility] Right: Knee [employer] 06/26/2029 5517-F-702 / N/A / [id number] Bsplt Tib Trthln 7 Kn Tritanium - Sn/A Implanted:Qty: 1 on 07/18/2024 by Jasvir Prakash MD at [facility] Right: Knee [employer] 05/22/2029 5536-B-700 / N/A / [id number] Ins Tib Trthln X3 7 10mm Kn Cndrl Stab B - Sn/A Implanted:Qty: 1 on 07/18/2024 by Jasvir Prakash MD at [facility] Right: Knee [employer] 03/19/2029 5531-G-710 -E / N/A / [id number] Cmpnt Ptlr 11mm 39mm Smtr Trthln - Sn/A Implanted:Qty: 1 on 07/18/2024 by Jasvir Prakash MD at [facility] Right: Knee [employer] 09/22/2028 5556-L-[id number] / N/A / [id number] Care Teams Supervisor Whipped Topping Relationship Specialty Start Date End Date Vamshi Rc [address] [place] [id number] PCP - General 07/18/24
--- OUTSIDE RECORDS SUMMARY | 2024-10-23 15:21 | XMS_ITS | Continuity of Care Document ---
Author Organization [place] - [facility], [facility] [place] Address [address] [place] [address] Care Team Providers Care Foot Cutter Name Role Phone RC BONDS Primary Care Provider Assessment Encounter Date Assessment Date Assessment LastModified by Organization Details LastModified Time 10/23/2024 10/23/2024 39 yo M with - HTN - HLD - HTG - GERD - VIT D DEFICIENCY - JOSÉ MIGUEL - RT KNEE PAIN; s/p fall 10/09/23; S/p Rt TKR (07/15) - OBESITY III - SMOKER - H/O ELEVATED LFTs Annual labs: 01/08/24. Annual labs: 12/22/22. CXR: 11/21/22. Annual labs, H pylori: 12/09/21. D/w pt and his in detail about his findings, recent labs & imagines and further plan of care. All meds verified with pt. Meds as directed. Risks Vs benefits of Aspirin 81mg po QOD with food explained. Diet and exercise explained in detail. Educated about different options for him. BP diary education given and call us if any concerns. Currently smoking about few cigs per week. Encouraged pt to quit it. HM: Flu - Pt declined. Tdap - 12/21/21. F/u in 2-3 months. Annual labs in 12/14. [email or web address] Not available 10/23/2024 12:35:54 Plan of Treatment Reminders Order Date Submit Date Provider Last Modified By Organization Details Last Modified Time Details Appointments Follow Up 15 2024 11:30A M Rc Bonds MD Not available Not available Not available Lab lipid panel, serum [address] [facility] ([facility] [address] [place], [address], 10/23/2024 12:30:47 Referral None recorded. Procedures None recorded. Surgeries None recorded. Imaging None recorded. Medication Orders lisinopri l 40 mg tablet 2024 025 [id number], [address], [place], [id number], 10/23/2024 12:30:35 metoprolo l succinate ER 100 mg tablet,ex tended release 24 hr 2024 025 [facility], [address], [place], [id number], 10/23/2024 12:30:31 ergocalci ferol (vitamin D2) 1,250 mcg (50,000 unit) capsule 2024 025 [facility] #03842, [address], [place], [id number], 10/23/2024 12:30:28 atorvasta tin 80 mg tablet 2024 025 [id number], [address], [place], [id number], 10/23/2024 12:30:30 ezetimibe 10 mg tablet 2024 025 [id number], [address], [place], [id number], 10/23/2024 12:30:29 Patient TargetsNo targets recorded. Patient Instructions Encounter Date Encounter Id Patient Instructions Last Modified By Organization Details Last Modified Time 10/23/2024 [id number] When You Want to Lose Weight: Care Instructions [email or web address] Not available 10/23/2024 12:36:57 Reason for Referral None Reported. Results Created Date Observation Date Name Description Value Unit Range Abnormal Flag Note LastModifiedBy Organization Detail LastModifiedTime 10/24/19 25 10/23/2024 imagi ng/di ramanos tic resul t No observ ation record ed. [facility] [address], [place], [address], 10/23/2024 16:19:41 Result Notes None recorded. Problems Name Problem SNOMED Code Status Onset Date Resolution Date Notes Provider Name and Address Organization Details Recorded Time History of hypertens ion 369241577 Completed 202112/06/2021 Not Available [facility] 3 19:34:52 Gastroeso phageal reflux disease without esophagit is 823641017 Active 2021 Not Available [facility] 3 19:34:52 Hypertrig lyceridem ia 215228336 Active 2021 Not Available [facility] 3 19:34:52 Effusion of joint of right knee 03161109939 9104 Active 2021 Not Available [facility] 3 19:34:52 Vitamin D deficienc y 57326757 Active 2021 Not Available [facility] 3 19:34:52 Hypertens polo disorder 45094796 Active 2021 Not Available [facility] 3 19:34:52 Vertigo 079265573 Active 2021 Not Available [facility] 3 19:34:52 Capillary hemangiom a 923876123 Active 2021 Not Available [facility] 3 19:34:52 Viral labyrinth itis 138424424 Active 2021 Not Available [facility] 3 19:34:52 Viral labyrinth itis 150682009 Active 2021 Not Available [facility] 3 19:34:53 Obesity 586640660 Active 2021 Not Available [facility] 3 19:34:53 Pain of right knee joint 23156675083 4100 Active 2021 Not Available [facility] 3 19:34:53 Upper respirato ry infection 92067687 Active 2021 Not Available [facility] 3 19:34:53 Hyperlipi demia 74125769 Active 2021 Not Available [facility] 3 19:34:53 Liver enzymes level above reference range 426907597 Active 2021 Not Available [facility] 3 19:34:53 Smoker 02349090 Active 2021 Not Available [facility] 3 19:34:53 Obstructi ve sleep apnea syndrome 86029225 Active 2021 Not Available [facility] 3 19:34:53 Frontal headache 500132148 Active 2022 Rc Bonds MD [address], [place], [address] , [facility] 3 17:58:25 Nasal congestio n 31658078 Active 2022 Rc Bonds MD [address], [address], [place], [address] , [place] [facility] 3 17:58:30 Bleeding from nose 024775615 Active 2022 Rc Bonds MD [address], [address], [place], [address] , [place] [facility] 3 17:58:50 Sinusitis 85811748 Active 2022 Rc Bonds MD [address], [place], [address] , [facility] 3 18:07:20 Otalgia of left ear 5535606019 Active 2023 Rc Bonds MD [address], [place], [address] , [facility] 4 17:42:23 Injury of right knee 69049206468 420947 Active 2023 DAVID Galicia [address], [place], [address] , [employer] [facility] [employer] 4 15:46:24 Malaise and fatigue 271895911 Active 2023 Rc Bonds MD [address], [place], [address] , [facility] [employer] [facility] [employer] 4 15:36:30 Sore throat 229198086 Active 2023 Rc oBnds MD [address], [place], [address] , [employer] [facility] [employer] 4 12:45:31 Headache 56915448 Active 2023 Rc Bonds MD [address], [place], [address] , [employer] [facility] [employer] 4 12:45:36 Cough 53955327 Active 2023 Rc Bonds MD [address], [place], [address] , [employer] [facility] [employer] 4 12:45:47 Bronchiti s 27536669 Active 2023 Rc Bonds MD [address], [place], [address] , [employer] [facility] [employer] 4 15:48:34 History of right total knee replaceme nt 70661394787 68192 Active 2024 Rc Bonds MD [address], [place], [address] , [employer] [facility] [employer] 5 12:36:29 Problem Notes None recorded. Procedures Surgical History Date Name Laterality Status Provider Name and Address Organization Details Recorded Time 4 Smoking Cessation completed MD [address], [place], [address], [facility] [employer] [facility] [employer] 12/12/2023 16:51:35 3 Smoking Cessation completed Rc Bonds MD [address], [place], [address], [facility] [employer] [facility] 07/02/2023 17:00:11 3 Smoking Cessation completed Rc Bonds MD [address], [place], [address], [facility] [employer] [facility] 04/02/2023 16:42:30 3 Smoking Cessation completed Rc Bonds MD [address], [place], [address], [facility] [employer] [facility] 12/25/2022 18:16:18 3 Smoking Cessation completed Rc Bonds MD [address], [place], [address], [facility] [employer] [facility] 12/11/2022 18:19:43 5 Ankle Surgery completed Not Available [facility] 2022 19:33:21 Imaging Results None recorded. Procedure Notes None recorded. Medical Equipment None Reported. Allergies No known drug allergies Medications Name Sig Start Date Stop Date Status Note LastModified by Organization Details LastModified Time cyclobenzap rine 10 mg tablet TAKE 1 TABLET BY MOUTH THREE TIMES DAILY NEEDED FOR MUSCLE SPASM active Not Available Not Available No t Available atorvastati n 40 mg tablet TAKE 1 TABLET BY MOUTH AT BEDTIME 10/02 completed Not Available Not Available Not Available atorvastati n 80 mg tablet Take 1 tablet every day by oral route at bedtime for 90 days. 2024 active Not Available Not Available Not Avai lable prednisone 10 mg tablet Take 1 tablet every day by oral route as directed for 7 days. 10/23 completed Not Available Not Available Not Available atorvastati n 20 mg tablet Take 1 tablet every day by oral route at bedtime for 90 days. 12/11 completed Not Available Not Available Not Available nicotine 14 mg/24 hr daily transdermal patch Apply 1 patch every day by transderm al route as directed for 30 days. 10/23 completed Not Available Not Available Not Available azithromyci n 250 mg tablet TAKE 2 TABLETS (500 MG) BY ORAL ROUTE ONCE DAILY FOR 1 DAY THEN 1 TABLET (250 MG) BY ORAL ROUTE ONCE DAILY FOR 4 DAYS 10/23 completed Not Available Not Available Not Available benzonatate 200 mg capsule TAKE 1 CAPSULE BY MOUTH EVERY 8 HOURS FOR 10 DAYS NEEDED 07/03 completed Not Available Not Available Not Available metoprolol succinate ER 50 mg tablet,exte nded release 24 hr TAKE 1 TABLET BY MOUTH EVERY DAY DIRECTED 10/23 completed Not Available Not Available Not Available meloxicam 15 mg tablet TAKE 1 TABLET BY MOUTH EVERY DAY DIRECTED 2023 active Not Available Not Available Not Avai lable lisinopril 20 mg tablet TAKE 1 TABLET BY MOUTH EVERY DAY DIRECTED 07/02 completed Not Available Not Available Not Available prednisone 20 mg tablet TAKE 2 TABLET BY MOUTH DAILY 12/06 completed Not Available Not Available Not Available metoprolol succinate ER 100 mg tablet,exte nded release 24 hr Take 1 tablet every day by oral route as directed for 90 days. 2024 active Not Available Not Available Not Avai lable tramadol 50 mg tablet TAKE 1 TO 2 TABLETS BY MOUTH EVERY 8 HOURS NEEDED 10/23 completed Not Available Not Available Not Available oxycodone-a cetaminophe n 5 mg-325 mg tablet TAKE 1-2 TABLETS BY MOUTH EVERY 4-6 HOURS NEEDED MAX OF 6 PER DAY 10/23 completed Not Available Not Available Not Available meclizine 25 mg tablet Take 1 tablet every 8 hours by oral route as needed for 5 days. 07/03 completed Not Available Not Available Not Available benzonatate 100 mg capsule TAKE 1 CAPSULE BY MOUTH THREE TIMES DAILY NEEDED FOR COUGH 12/06 completed Not Available Not Available Not Available lisinopril 10 mg tablet TAKE 1 TABLET BY MOUTH EVERY DAY IN THE MORNING 04/02 completed Not Available Not Available Not Available nicotine 21 mg/24 hr daily transdermal patch Apply 1 patch every day by transderm al route as directed for 30 days. 07/02 completed Not Available Not Available Not Available lisinopril 30 mg tablet Take 1 tablet every day by oral route as directed for 90 days. 10/17 completed Not Available Not Available Not Available omeprazole 20 mg capsule,del ayed release TAKE 1 CAPSULE BY MOUTH EVERY DAY IN THE MORNING active Not Available Not Available No t Available cephalexin 500 mg tablet 10/23 completed Not Available Not Available Not Available metoprolol succinate ER 25 mg tablet,exte nded release 24 hr TAKE 1 TABLET BY MOUTH EVERY DAY IN THE EVENING 01/09 completed Not Available Not Available Not Available ergocalcife rol (vitamin D2) 1,250 mcg (50,000 unit) capsule Take 1 capsule every week by oral route as directed for 90 days. 2024 active Not Available Not Available Not Avai lable methylpredn isolone 4 mg tablets in a dose pack FOLLOW PACKAGE DIRECTION S 12/11 completed Not Available Not Available Not Available lisinopril 40 mg tablet Take 1 tablet every day by oral route as directed for 90 days. 2024 active Not Available Not Available Not Avai lable naproxen 500 mg tablet TAKE 1 TABLET BY MOUTH TWICE DAILY NEEDED FOR PAIN 10/23 completed Not Available Not Available Not Available diazepam 5 mg tablet TAKE 1 TABLET BY MOUTH EVERY 8 HOURS NEEDED 10/23 completed Not Available Not Available Not Available amoxicillin 875 mg-potassiu m clavulanate 125 mg tablet TAKE 1 TABLET BY MOUTH EVERY 12 HOURS FOR 10 DAYS DIRECTED 07/03 completed Not Available Not Available Not Available neomycin-po lymyxin-hyd rocort 3.5 mg-10,000 unit/mL-1 % ear drops,susp SHAKE LIQUID AND INSTILL 3 DROPS TO AFFECTED EAR THREE TIMES DAILY 11/18 completed Not Available Not Available Not Available ezetimibe 10 mg tablet Take 1 tablet every day by oral route in the morning for 90 days. 2024 active Not Available Not Available Not Avai lable Zyrtec active Not Available Not Availa ble Not Available varenicline tartrate 1 mg tablet Take 1 tablet twice a day by oral route as directed for 30 days. 10/23 completed Not Available Not Available Not Available varenicline tartrate 0.5 mg (11)-1 mg (42) tablets in a dose pack TAKE DIRECTED PER PACKAGE INSTRUCTI ONS FOR 30 DAYS 04/02 completed Not Available Not Available Not Available Vascepa 1 gram capsule Take 2 capsules twice a day by oral route after meals for 90 days. 2023 active Not Available Not Available Not Avai lable Vitals Date Recorded Body height Body mass index (BMI) Body weight Body temperature Oxygen saturation Oxygen saturation in Arterial blood by Pulse oximetry Heart rate Systolic blood pressure Diastolic blood pressure Provider Name and Address Organization Details Last Updated DateTime 5 180.34 cm 42.3 kg/m2 852394. 64 g 97 [degF] 96 % 96 % 90 /min 130 mm[Hg] 84 mm[Hg] Tricia Oleary RN [place] [facility] [employer] 5 12:18:34 Social History Question Answer Notes LastModified by Organizat ion Details LastModified Time Tobacco Smoking Status Current Some Day Smoker Not Available [facility] 09/20/2022 19:33:12 Do You Have An Advance Directive? No [id number].[id number] Information not available 09/20/2022 What Is Your Level Of Alcohol Consumption? Occasional MIGRATION.29302 [id number] Information not available 09/20/2022 Do You Wear A Helmet When Biking? No MIGRATION.62976 04841 Information not available 09/20/2022 What Is Your Level Of Caffeine Consumption? Moderate MIGRATION.15880 [id number] Information not available 09/20/2022 In The 14 Days Before Symptom Onset, Have You Had Close Contact With A Laboratory-confir med COVID-19 While That Case Was Ill? No MIGRATION.32374 [id number] Information not available 09/20/2022 In The 14 Days Before Symptom Onset, Have You Had Close Contact With A Person Who Is Under Investigation For COVID-19 While That Person Was Ill? No MIGRATION.49255 81788 Information not available 09/20/2022 What Type Of Diet Are You Following? REGULAR MIGRATION.25398 30998 Information not available 09/20/2022 What Is The Highest Grade Or Level Of School You Have Completed Or The Highest Degree You Have Received? [id number] MIGRATION.60298 [id number] Information not available 09/20/2022 Have There Been Any Changes To Your Family Or Social Situation? No MIGRATION.39348 19256 Information not available 09/20/2022 What Is The Fluoride Status Of Your Home? Unknown MIGRATION.94846 05651 Information not available 09/20/2022 Are There Any Guns Present In Your Home? No MIGRATION.73135 66427 Information not available 09/20/2022 Do You Use Insect Repellent Routinely? No MIGRATION.12224 98355 Information not available 09/20/2022 Do You Have A Medical Power Of Traffic Representative? No MIGRATION.21825 09857 Information not available 09/20/2022 Have You Ever Been Counseled For Unhealthy Alcohol Use? No MIGRATION.93635 60873 Information not available 09/20/2022 Do You Have Any Pets? Yes MIGRATION.69357 97860 Information not available 09/20/2022 What Is Your Relationship Status? MIGRATION.97605 51062 Information not available 09/20/2022 Do You Use Your Seat Belt Or Car Seat Routinely? Yes MIGRATION.34865 46386 Information not available 09/20/2022 Do You Have Smoke And Carbon Monoxide Detectors In Your Home? Yes MIGRATION.64588 51933 Information not available 09/20/2022 Are You Passively Exposed To Smoke? Yes MIGRATION.12673 86717 Information not available 09/20/2022 Are There Any Smokers In Your House? No MIGRATION.84111 61087 Information not available 09/20/2022 How Much Tobacco Do You Smoke? 1 PPD Only When Pt Decides To Smoke And Drink MIGRATION.19322 29616 Information not available 09/20/2022 Do You Participate In Social Media? Yes MIGRATION.24908 94299 Information not available 09/20/2022 Do You Feel Stressed (tense, Restless, Nervous, Or Anxious, Or Unable To Sleep At Night)? [id number] [email or web address] Information not available 10/18/2023 Do You Use Any Illicit Or Recreational Drugs? No MIGRATION.33904 50673 Information not available 09/20/2022 Do You Use Sunscreen Routinely? No MIGRATION.78959 87208 Information not available 09/20/2022 Has Tobacco Cessation Counseling Been Provided? No MIGRATION.20322 58392 Information not available 09/20/2022 Have You Recently Traveled Abroad? No MIGRATION.50015 23720 Information not available 09/20/2022 Are You Currently In School? No MIGRATION.63606 64749 Information not available 09/20/2022 Do You Have Any Dietary Restrictions? No MIGRATION.27649 47033 Information not available 09/20/2022 Do You Or Have You Ever Used Any Other Forms Of Tobacco Or Nicotine? No MIGRATION.56675 58741 Information not available 09/20/2022 Sex: Male Functional Status Question Answer Note LastModified by Organizat ion Details LastModified Time What is your exercise level? None [id number].[id number] Information not available 09/20/2022 Mental Status None recorded. Family History Relationship Description Onset Age of this Age Resolved Age Notes LastModified by Organization Details LastModified Time Father Hypertensive disorder [id number] Not available 09/20/2022 19:33:21 Medical History Condition Response HYPOTENSION Y HEARTBURN / REFLUX Y HYPERTENSION Y Immunizations Vaccine Type Date Status Note Provider Nam e and Address Organization Details Recorded Time Tdap 12/21/2021 completed Not Available [employer] 09/20/2022 19:37:07 Past Encounters Encounter ID Performer Location Encounter Start Date Encounter Closed Date Diagnosis/Indication Diagnosis SNOMED-CT Code Diagnosis ICD10 Code Diagnosis Note [id number] Rc Bonds MD [facility] [address] [place] [id number] 10/23/2024 12:06:56 10/23/2024 12:39:59 Accident while engaged in work-related activity 42563471 X58.XXXD Pain of ri ght knee joint 6374023733 83555 M25.561 Chronic Vitamin D deficiency 347 73944 E55.9 Improved Obesity 829854188 E66.9 Hyperlipidemia 25493077 E78.5 Hypertensive disorder 38 632686 I10 History of right total knee replacement 0800768305 706616 Z96.651 06/2024 Health Concerns Section Related Observation LastModified by Organization Detai ls LastModified Time None Recorded Concern Status LastModified by Organization Details LastModified Time None Recorded Payers Encounter Date Sequence Insurance Name Policy Number Policy Galvan Covered Member ID Galvan Member ID Guarantor Name 10/23/2024 1 [employer] - [employer] [id number] Dale Kramer [id number] Dale Kramer 10/23/2024 2 [employer] () Dale Kramer [id number] Dale Kramer Notes Date Note Type Note Provider Name and Address Organization Details Recorded Time 10/23/2024 text/html Pt is here with his for f/u on his labs, meds and chronic conditions. Doing overall better. Denies any problem with meds. Pt wants to get his lab done today. Pt got Rt TKR with his [facility] Orthopedist on 07/18/24. Pt had a injury to his Rt knee on 10/09/23 and had Rt tibial plate fracture while he was at his work and since than, he is f/u under [facility] [facility] with Ortho - Dr. Prakash - at [place], [place]. Pt is not able to go to his work since this. Rc Bonds MD [address] [place] [address], [facility] [address], [place], [address], [place] [facility] 10/23/2024 12:38:15
--- OUTSIDE RECORDS SUMMARY | 2024-10-23 15:21 | XMS_ITS | Data Portability ---
Author Organization [place] [employer], Main Office Address [address] [place] [address] Care Team Providers Care Computer Operations Manager Name Role Phone RC BONDS Primary Care Provider [phone] Assessment Encounter Date Assessment Date Assessment LastModified by Organization Details LastModified Time 01/10/2024 01/10/2024 38 yo M with - HTN - HLD - HTG - GERD - VIT D DEFICIENCY - JOSÉ MIGUEL - OBESITY III - SMOKER - H/O [...] Pt declined. Tdap - 12/21/21. F/u in 3 months. Lipids in 04/15. Annual labs in 12/14. [email or web address] Not available 01/10/2024 17:59:20 07/03/2024 07/03/2024 39 yo M with - PRE-OP EXAM - BRONCHITIS - RT KNEE PAIN; s/p fall 10/09/23 - HTN - HLD - HTG - GERD - VIT D DEFICIENCY - JOSÉ MIGUEL - OBESITY III - SMOKER - H/O ELEVATED LFTs Annual labs: 01/08/24. Annual labs: 12/22/22. CXR: 11/21/22. Annual labs, H pylori: 5/20/22. D/w pt and his in detail about his findings, recent labs & imagines and further plan of care. Will do labs, cxr, EKG as requested by Ortho. Pt says he has waited a long time and he got trust and estates attorney involved to get this surgery approved and so he doesn't want to Post-pone this. Forms will be filled out once all testing is back. Will update pt/ with this. All meds verified with pt. Meds as directed. Risks Vs benefits of Aspirin 81mg po QOD with food explained. Diet and exercise explained in detail. Educated about different options for him. BP diary education given and call us if any concerns. Currently smoking about few cigs per week. Encouraged pt to quit it. HM: Flu - Pt declined. Tdap - 12/21/21. F/u in 1-2 months. Lipids before next visit. Annual labs in 12/14. [email or web address] Not available 07/03/2024 16:46:23 10/23/2024 10/23/2024 39 yo M with - [...] in 2-3 months. Annual labs in 12/14. [email or web address] Not available 10/23/2024 12:35:54 Plan of Treatment Reminders Order Date Submit Date Provider Last Modified By Organization Details Last Modified Time Details Appointments Follow Up 15 2024 11:30A M Rc Bonds MD Not available Not available Not available Lab lipid panel, serum 2024 025 [email or web address] [facility] (Lab), [address] [place], [address], 10/23/2024 12:30:47 CBC w/ diff 2023 024 [email or web address] [facility] (Lab), [address] [place], [address], 07/17/2024 08:15:51 CMP, serum or plasma 2023 024 [facility] (Lab), [address] [place], [address], 07/08/2024 13:31:19 rapid strep group A, throat [address], [address], 04/30/2024 13:51:48 rapid flu (A+B) 2023 024 [facility], [address] [place] [address], [place], [address], 04/30/2024 13:52:06 lipid panel, serum [address] (Lab), [address] [place], [address], 04/28/2024 09:30:54 Referral None recorded. Procedures None recorded. Surgeries None recorded. Imaging electroca rdiogram, routine ECG, 12 leads min 2023 024 [facility] ([facility]), [address] [place], [address], 07/08/2024 10:48:07 XR, chest, 2 view - Please call pt to schedule 2023 024 [facility] ([facility]), [address], [place], [address], 07/08/2024 08:47:47 Medication Orders lisinopri l 40 mg tablet 2024 [facility] #90898, [address], [place], [id number], 10/23/2024 12:30:35 metoprolo l succinate ER 100 mg tablet,ex tended release 24 hr 2024 [facility] #44338, [address], [place], [id number], 10/23/2024 12:30:31 ergocalci ferol (vitamin D2) 1,250 mcg (50,000 unit) capsule 2024 [facility] #55088, [address], [place], [id number], 10/23/2024 12:30:28 atorvasta tin 80 mg tablet 2024 025 [facility] #82810, [address], [place], [id number], 10/23/2024 12:30:30 ezetimibe 10 mg tablet 2024 025 [facility] #26462, [address], [place], [id number], 10/23/2024 12:30:29 azithromy gerardo 250 mg tablet 2023 024 [email or web address] [facility] #70193, [address], [place], [id number], 10/23/2024 12:26:12 ergocalci ferol (vitamin D2) 1,250 mcg (50,000 unit) capsule [address] [facility]14797, [address] [facility], [place], [place], [id number], 07/03/2024 16:40:38 benzonata te 200 mg capsule [address] [facility] #39287, [address] [facility], [place], [place], [id number], 07/03/2024 15:54:40 prednison e 10 mg tablet [address] [facility] #96289, [address] [facility], [place], [place], [id number], 10/23/2024 12:27:44 amoxicill in 875 mg-potass ium clavulana te 125 mg tablet [address] [facility] #94061, [address] [facility], [place], [place], [id number], 07/03/2024 15:54:37 Vascepa 1 gram capsule 2023 [facility] #66355, [address] [facility], [place], [place], [id number], 01/10/2024 17:52:30 lisinopri l 40 mg tablet 2023 [facility] #49033, [address], [place], [id number], 01/10/2024 17:52:31 metoprolo l succinate ER 100 mg tablet,ex tended release 24 hr 2023 [facility] #69108, [address] [facility], [place], [place], [id number], 01/10/2024 17:52:31 nicotine 14 mg/24 hr daily transderm al patch 2023 024 [email or web address] [facility] #42409, [address] [facility], [place], [place], [id number], 10/23/2024 12:28:25 omeprazol e 20 mg capsule,d elayed release 2023 024 [facility] #20828, [address] [facility], [place], [place], [id number], 01/10/2024 17:52:31 atorvasta tin 80 mg tablet 2023 024 [facility] #78707, [address] [facility], [place], [place], [id number], 01/10/2024 17:52:29 ezetimibe 10 mg tablet 2023 024 [facility] #58785, [address] [facility], [place], [place], [id number], 01/10/2024 17:52:32 Patient TargetsNo targets recorded. Patient Instructions Encounter Date Encounter Id Patient Instructions Last Modified By Organization Details Last Modified Time 01/10/2024 [id number] learning about obesity [email or web address] Not available 01/10/2024 17:52:20 starting a weigh t loss plan: care instructions [email or web address] Not available 01/10/2024 17:52:20 high cholesterol : care instructions [email or web address] Not available 01/10/2024 17:52:20 10/23/2024 [id number] When You Want to Lose Weight: Care Instructions [email or web address] Not available 10/23/2024 12:36:57 Reason for Referral None Reported. Results Created Date Observation Date Name Description Value Unit Range Abnormal Flag Note LastModifiedBy Organization Detail LastModifiedTime 01/08/20 24 01/08/2024 CBC/C OMPLE TE BLD COUNT W/DIF F white blood cells 7.8 x10'3 /uL 4.2-10 .8 Not Available [facility] (Lab) [address] [place], [address], 01/08/2024 14:07:43 01/08/20 24 01/08/2024 CBC/C OMPLE TE BLD COUNT W/DIF F red blood cells 4.92 x10'6 /uL 4.10-5 .80 Not Available [facility] (Lab) [address] [place], [address], 01/08/2024 14:07:43 01/08/20 24 01/08/2024 CBC/C OMPLE TE BLD COUNT W/DIF F hemoglobin 14.6 g/dL 13.2-1 7.0 Not Available [facility] (Lab) [address] [place], [address], 01/08/2024 14:07:43 01/08/20 24 01/08/2024 CBC/C OMPLE TE BLD COUNT W/DIF F hematocrit 43.0 % 39.3-5 0.0 Not Available [facility] (Lab) [address] [place], [address], 01/08/2024 14:07:43 01/08/20 24 01/08/2024 CBC/C OMPLE TE BLD COUNT W/DIF F mean red cell volume 87.4 fL 80.0-9 7.0 Not Available [facility] (Lab) [address] [place], [address], 01/08/2024 14:07:43 01/08/20 24 01/08/2024 CBC/C OMPLE TE BLD COUNT W/DIF F mean red cell hemoglobin 29.7 pg 27.0-3 3.0 Not Available [facility] (Lab) [address] [place], [address], 01/08/2024 14:07:43 01/08/20 24 01/08/2024 CBC/C OMPLE TE BLD COUNT W/DIF F mean RBC HGB concentratio n 34.0 g/dL 31.0-3 6.0 Not Available [facility] (Lab) [address] [place], [address], 01/08/2024 14:07:43 01/08/20 24 01/08/2024 CBC/C OMPLE TE BLD COUNT W/DIF F red cell distribution width 13.1 % 11.8-1 5.5 Not Available [facility] (Lab) [address] [place], [address], 01/08/2024 14:07:43 01/08/20 24 01/08/2024 CBC/C OMPLE TE BLD COUNT W/DIF F platelets 218 x10'3 /uL 150-40 0 Not Available [facility] (Lab) [address] [place], [address], 01/08/2024 14:07:43 01/08/20 24 01/08/2024 CBC/C OMPLE TE BLD COUNT W/DIF F mean platelet volume 10.1 fL 9.0-12 .4 Not Available [facility] (Lab) [address] [place], [address], 01/08/2024 14:07:43 01/08/20 24 01/08/2024 CBC/C OMPLE TE BLD COUNT W/DIF F neutrophils 55.2 % 39.0-7 2.0 Not Available [facility] (Lab) [address] [place], [address], 01/08/2024 14:07:43 01/08/20 24 01/08/2024 CBC/C OMPLE TE BLD COUNT W/DIF F lymphocytes 35.6 % 16.0-4 7.0 Not Available [facility] (Lab) [address] [place], [address], 01/08/2024 14:07:43 01/08/20 24 01/08/2024 CBC/C OMPLE TE BLD COUNT W/DIF F monocytes 6.7 % 5.0-12 .0 Not Available [facility] (Lab) [address] [place], [address], 01/08/2024 14:07:43 01/08/20 24 01/08/2024 CBC/C OMPLE TE BLD COUNT W/DIF F eosinophils 1.4 % 1.0-7. 0 Not Available [facility] (Lab) [address] [place], [address], 01/08/2024 14:07:43 01/08/20 24 01/08/2024 CBC/C OMPLE TE BLD COUNT W/DIF F basophils 0.5 % 0.0-2. 0 Not Available [facility] (Lab) [address] [place], [address], 01/08/2024 14:07:43 01/08/20 24 01/08/2024 CBC/C OMPLE TE BLD COUNT W/DIF F immature granulocytes 0.6 % 0.00-0 .50 high Not Available [facility] (Lab) [address] [place], [address], 01/08/2024 14:07:43 01/08/20 24 01/08/2024 CBC/C OMPLE TE BLD COUNT W/DIF F neutrophils, absolute count 4.27 x10'3 /uL 1.5-8. 0 Not Available [facility] (Lab) [address] [place], [address], 01/08/2024 14:07:43 01/08/20 24 01/08/2024 CBC/C OMPLE TE BLD COUNT W/DIF F lymphocytes, absolute count 2.76 x10'3 /uL 1.07-3 .43 Not Available [facility] (Lab) [address] [place], [address], 01/08/2024 14:07:43 01/08/20 24 01/08/2024 CBC/C OMPLE TE BLD COUNT W/DIF F monocytes, absolute count 0.52 x10'3 /uL 0.29-0 .99 Not Available [facility] (Lab) [address] [place], [address], 01/08/2024 14:07:43 01/08/20 24 01/08/2024 CBC/C OMPLE TE BLD COUNT W/DIF F eosinophils, absolute count 0.11 x10'3 /uL 0.02-0 .53 Not Available [facility] (Lab) [address] [place], [address], 01/08/2024 14:07:43 01/08/20 24 01/08/2024 CBC/C OMPLE TE BLD COUNT W/DIF F basophils, absolute count 0.04 x10'3 /uL 0.01-0 .08 Not Available [facility] (Lab) [address] [place], [address], 01/08/2024 14:07:43 01/08/20 24 01/08/2024 CBC/C OMPLE TE BLD COUNT W/DIF F immature granulocytes ,absolute 0.05 x10'3 /uL 0.00-0 .05 Not Available [facility] (Lab) [address] [place], [address], 01/08/2024 14:07:43 01/08/20 24 01/08/2024 CBC/C OMPLE TE BLD COUNT W/DIF F nucleated red blood cells 0.0 % -0 Not Available [facility] (Lab) [address] [place], [address], 01/08/2024 14:07:43 01/08/20 24 01/08/2024 CBC/C OMPLE TE BLD COUNT W/DIF F NRBC# 0.00 x10'3 /uL Not Available [facility] (Lab) [address] [place], [address], 01/08/2024 14:07:43 01/08/20 24 01/08/2024 COMPR EHENS YANA METAB OLIC PANEL sodium 135 mmol/ L 137-14 5 low Not Available [facility] (Lab) [address] [place], [address], 01/08/2024 16:54:02 01/08/20 24 01/08/2024 COMPR EHENS YANA METAB OLIC PANEL potassium 4.0 mmol/ L 3.5-5. 1 Not Available [facility] (Lab) [address] [place], [address], 01/08/2024 16:54:02 01/08/20 24 01/08/2024 COMPR EHENS YANA METAB OLIC PANEL chloride 107 mmol/ L 98-107 Not Available [facility] (Lab) [address] [place], [address], 01/08/2024 16:54:02 01/08/20 24 01/08/2024 COMPR EHENS YANA METAB OLIC PANEL carbon dioxide 25 mmol/ L 22-30 Not Available [facility] (Lab) [address] [place], [address], 01/08/2024 16:54:02 01/08/20 24 01/08/2024 COMPR EHENS YANA METAB OLIC PANEL anion gap 7.0 mmol/ L 14-22 low Not Available [facility] (Lab) [address] [place], [address], 01/08/2024 16:54:02 01/08/20 24 01/08/2024 COMPR EHENS YANA METAB OLIC PANEL glucose 101 mg/dL 70-99 high Not Available [facility] (Lab) [address] [place], [address], 01/08/2024 16:54:02 01/08/20 24 01/08/2024 COMPR EHENS YANA METAB OLIC PANEL BUN 17 mg/dL 8-19 Not Available [facility] (Lab) [address] [place], [address], 01/08/2024 16:54:02 01/08/20 24 01/08/2024 COMPR EHENS YANA METAB OLIC PANEL creatinine 0.67 mg/dL 0.66-1 .25 Not Available [facility] (Lab) [address] [place], [address], 01/08/2024 16:54:02 01/08/20 24 01/08/2024 COMPR EHENS YANA METAB OLIC PANEL GFR >60 Refer ence Range : [place] ge GFR Healt hy Adult : >60 mL/mi n/1.7 3 m2 Chron ic Kidne y Disea se: 15-60 mL/mi n/1.7 3 m2 Kidne y Failu re: <15/m L/min /1.73 m2 www.n iddk. nih.g ov The MDRD study equat ion has not been valid ated in child eliot <18 years of age; pregn ant women ; the elder ly >85 years of age; or in some racia l or ethni c subgr oups, such as Hisma nics. Outsi de the valid ated emily eters , estim ated GFR is less accur ate, requi ring clini nikko judgm ent on a case- by-ca se basis . Clini nikko inter preta tion for other races and ages must be made by the clini fab. The MDRD study equat ion has not been valid ated for the evalu ation of serum creat inine relat ed to nutri jamel l statu s or medic ation usage . For perso ns <18 years of age, a pedia tric GFR calcu lator is avail able on the [employer] websi te: https ://ana lilia العلي.fernie dee/carmen sheppardess vickial s/kdo qi/gf r_cal culat or Not Available [facility] (Lab) [address] [place], [address], 01/08/2024 16:54:02 01/08/20 24 01/08/2024 COMPR EHENS YANA METAB OLIC PANEL alkaline phosphatase 93 U/L 38-126 Not Available [facility] (Lab) [address] [place], [address], 01/08/2024 16:54:02 01/08/20 24 01/08/2024 COMPR EHENS YANA METAB OLIC PANEL alanine aminotransfe rase 46 U/L 0-50 Not Available [facility] (Lab) [address] [place], [address], 01/08/2024 16:54:02 01/08/20 24 01/08/2024 COMPR EHENS YANA METAB OLIC PANEL aspartate aminotransfe rase 30 U/L 15-46 Not Available [facility] (Lab) [address] [place], [address], 01/08/2024 16:54:02 01/08/20 24 01/08/2024 COMPR EHENS YANA METAB OLIC PANEL bilirubin, total 1.00 mg/dL 0.20-1 .30 Not Available [facility] (Lab) [address] [place], [address], 01/08/2024 16:54:02 01/08/20 24 01/08/2024 COMPR EHENS YANA METAB OLIC PANEL calcium 8.9 mg/dL 8.4-10 .2 Not Available [facility] (Lab) [address] [place], [address], 01/08/2024 16:54:02 01/08/20 24 01/08/2024 COMPR EHENS YANA METAB OLIC PANEL total protein 6.8 g/dL 6.3-8. 2 Not Available [facility] (Lab) [address] [place], [address], 01/08/2024 16:54:02 01/08/20 24 01/08/2024 COMPR EHENS YAAN METAB OLIC PANEL albumin 4.2 g/dL 3.4-5. 0 Not Available [facility] (Lab) [address] [place], [address], 01/08/2024 16:54:02 01/08/20 24 01/08/2024 COMPR EHENS YANA METAB OLIC PANEL globulin 2.6 g/dL 2.6-4. 2 Not Available [facility] (Lab) [address] [place], [address], 01/08/2024 16:54:02 01/08/20 24 01/08/2024 COMPR EHENS YANA METAB OLIC PANEL A/G ratio 1.6 ratio 1.0-2. 0 Not Available [facility] (Lab) [address] [place], [address], 01/08/2024 16:54:02 01/08/20 24 01/08/2024 LIPID PANEL cholesterol 207 mg/dL 140-19 9 high NIH ARTEMIO NSUS RECOM MENDA TION FOR JOHN PAUL STERO L: ADULT CHILD LOW RISK: <200 <170 BORDE RLINE : <200- 239 ----- HIGH RISK: >240 >200 Not Available [facility] (Lab) [address] [place], [address], 01/08/2024 16:54:07 01/08/20 24 01/08/2024 LIPID PANEL triglyceride s 208 mg/dL 0-150 high NIH ARTEMIO NSUS REPOR T RECOM MENDA TION FOR TRIGL YCERI STEPHANE: ADULT CHILD LOW RISK: <150 ----- BODER LINE: 150-1 99 ----- HIGH RISK: >200 ----- Not Available [facility] (Lab) [address] [place], [address], 01/08/2024 16:54:07 01/08/20 24 01/08/2024 LIPID PANEL HDL cholesterol 59 mg/dL 40- Not Available [facility] (Lab) [address] [place], [address], 01/08/2024 16:54:07 01/08/20 24 01/08/2024 LIPID PANEL LDL cholesterol, calculated 106 mg/dL 0-130 NIH ARTEMIO NSUS REPOR T RECOM MENDA TIONS FOR LDL: ADULT CHILD LOW RISK <130 <110 (OPTI MAL LDL) <100 ----- BORDE RLINE : 130-1 59 ----- HIGH RISK: >160 >130 A TRIGL YCERI DE RESUL T >400 INVAL IDATE S THE CALCU LATIO N FOR LDL FRACT IONAT ION - THE LDL RESUL T WILL NOT BE REPOR PAT. Not Available [facility] (Lab) [address] [place], [address], 01/08/2024 16:54:07 01/08/20 24 01/08/2024 PSA, TOTAL PSA, total 0.55 NG/mL 0.00-4 .00 Not Available [facility] (Lab) [address] [place], [address], 01/08/2024 17:04:37 01/08/20 24 01/08/2024 TSH W/REF MIGUEL FT4 TSH with reflex free T4 2.230 uIU/m L 0.465- 4.680 Not Available [facility] (Lab) [address] [place], [address], 01/08/2024 17:04:39 01/08/20 24 01/08/2024 VITAM IN D 25-HY DROXY [id number] 35.4 NG/mL 30-100 Vitam in D Statu s: Defic ient: <20 ng/mL Insuf ficie nt: 20-29 ng/mL Suffi cient : 30-10 0 ng/mL Not Available [facility] (Lab) [address] [place], [address], 01/08/2024 17:09:42 01/08/20 24 01/08/2024 HEMOG LOBIN A1C HA1C 5.4 % 4.0-6. 0 Diabe sin Scree onur Crite aura: <5.7% Consi stent with absen ce of diabe sin 5.7-6 .4% Consi stent with incre ased risk for diabe sin (pred iabet es) >OR=6 .5% Consi stent with diabe sin REFER ENCE: Diabe sin Care 2016, 39([place]man ppl.1 ):s13 -s22 Not Available [facility] (Lab) [address] [place], [address], 01/08/2024 20:25:52 04/30/20 24 04/30/2024 rapid flu (A+B) Flu A negati ve Not Available [address], [address], 04/30/2024 13:04:33 04/30/20 24 04/30/2024 rapid flu (A+B) Flu B negati ve Not Available [address], [address], 04/30/2024 13:04:33 04/30/20 24 04/30/2024 rapid strep group A, throa t STREP A negati ve Not Available [address], [address], 04/30/2024 13:04:31 07/08/20 24 07/08/2024 CBC/C OMPLE TE BLD COUNT W/DIF F white blood cells 6.4 x10'3 /uL 4.2-10 .8 Not Available [facility] (Lab) [address] [place], [address], 07/08/2024 13:21:35 07/08/20 24 07/08/2024 CBC/C OMPLE TE BLD COUNT W/DIF F red blood cells 4.84 x10'6 /uL 4.10-5 .80 Not Available [facility] (Lab) [address] [place], [address], 07/08/2024 13:21:35 07/08/20 24 07/08/2024 CBC/C OMPLE TE BLD COUNT W/DIF F hemoglobin 14.2 g/dL 13.2-1 7.0 Not Available [facility] (Lab) [address] [place], [address], 07/08/2024 13:21:35 07/08/20 24 07/08/2024 CBC/C OMPLE TE BLD COUNT W/DIF F hematocrit 41.5 % 39.3-5 0.0 Not Available [facility] (Lab) [address] [place], [address], 07/08/2024 13:21:35 07/08/20 24 07/08/2024 CBC/C OMPLE TE BLD COUNT W/DIF F mean red cell volume 85.7 fL 80.0-9 7.0 Not Available [facility] (Lab) [address] [place], [address], 07/08/2024 13:21:35 07/08/20 24 07/08/2024 CBC/C OMPLE TE BLD COUNT W/DIF F mean red cell hemoglobin 29.3 pg 27.0-3 3.0 Not Available [facility] (Lab) [address] [place], [address], 07/08/2024 13:21:35 07/08/20 24 07/08/2024 CBC/C OMPLE TE BLD COUNT W/DIF F mean RBC HGB concentratio n 34.2 g/dL 31.0-3 6.0 Not Available [facility] (Lab) [address] [place], [address], 07/08/2024 13:21:35 07/08/20 24 07/08/2024 CBC/C OMPLE TE BLD COUNT W/DIF F red cell distribution width 12.4 % 11.8-1 5.5 Not Available [facility] (Lab) [address] [place], [address], 07/08/2024 13:21:35 07/08/20 24 07/08/2024 CBC/C OMPLE TE BLD COUNT W/DIF F platelets 241 x10'3 /uL 150-40 0 Not Available [facility] (Lab) [address] [place], [address], 07/08/2024 13:21:35 07/08/20 24 07/08/2024 CBC/C OMPLE TE BLD COUNT W/DIF F mean platelet volume 9.9 fL 9.0-12 .4 Not Available [facility] (Lab) [address] [place], [address], 07/08/2024 13:21:35 07/08/20 24 07/08/2024 CBC/C OMPLE TE BLD COUNT W/DIF F neutrophils 60.0 % 39.0-7 2.0 Not Available [facility] (Lab) [address] [place], [address], 07/08/2024 13:21:35 07/08/20 24 07/08/2024 CBC/C OMPLE TE BLD COUNT W/DIF F lymphocytes 30.4 % 16.0-4 7.0 Not Available [facility] (Lab) [address] [place], [address], 07/08/2024 13:21:35 07/08/20 24 07/08/2024 CBC/C OMPLE TE BLD COUNT W/DIF F monocytes 6.4 % 5.0-12 .0 Not Available [facility] (Lab) [address] [place], [address], 07/08/2024 13:21:35 07/08/20 24 07/08/2024 CBC/C OMPLE TE BLD COUNT W/DIF F eosinophils 2.3 % 1.0-7. 0 Not Available [facility] (Lab) [address] [place], [address], 07/08/2024 13:21:35 07/08/20 24 07/08/2024 CBC/C OMPLE TE BLD COUNT W/DIF F basophils 0.6 % 0.0-2. 0 Not Available [facility] (Lab) [address] [place], [address], 07/08/2024 13:21:35 07/08/20 24 07/08/2024 CBC/C OMPLE TE BLD COUNT W/DIF F immature granulocytes 0.3 % 0.00-0 .50 Not Available [facility] (Lab) [address] [place], [address], 07/08/2024 13:21:35 07/08/20 24 07/08/2024 CBC/C OMPLE TE BLD COUNT W/DIF F neutrophils, absolute count 3.83 x10'3 /uL 1.5-8. 0 Not Available [facility] (Lab) [address] [place], [address], 07/08/2024 13:21:35 07/08/20 24 07/08/2024 CBC/C OMPLE TE BLD COUNT W/DIF F lymphocytes, absolute count 1.94 x10'3 /uL 1.07-3 .43 Not Available [facility] (Lab) [address] [place], [address], 07/08/2024 13:21:35 07/08/20 24 07/08/2024 CBC/C OMPLE TE BLD COUNT W/DIF F monocytes, absolute count 0.41 x10'3 /uL 0.29-0 .99 Not Available [facility] (Lab) [address] [place], [address], 07/08/2024 13:21:35 07/08/20 24 07/08/2024 CBC/C OMPLE TE BLD COUNT W/DIF F eosinophils, absolute count 0.15 x10'3 /uL 0.02-0 .53 Not Available [facility] (Lab) [address] [place], [address], 07/08/2024 13:21:35 07/08/20 24 07/08/2024 CBC/C OMPLE TE BLD COUNT W/DIF F basophils, absolute count 0.04 x10'3 /uL 0.01-0 .08 Not Available [facility] (Lab) [address] [place], [address], 07/08/2024 13:21:35 07/08/20 24 07/08/2024 CBC/C OMPLE TE BLD COUNT W/DIF F immature granulocytes ,absolute 0.02 x10'3 /uL 0.00-0 .05 Not Available [facility] (Lab) [address] [place], [address], 07/08/2024 13:21:35 07/08/20 24 07/08/2024 CBC/C OMPLE TE BLD COUNT W/DIF F nucleated red blood cells 0.0 % -0 Not Available [facility] (Lab) [address] [place], [address], 07/08/2024 13:21:35 07/08/20 24 07/08/2024 CBC/C OMPLE TE BLD COUNT W/DIF F NRBC# 0.00 x10'3 /uL Not Available [facility] (Lab) [address] [place], [address], 07/08/2024 13:21:35 07/08/20 24 07/08/2024 COMPR EHENS YANA METAB OLIC PANEL sodium 141 mmol/ L 137-14 5 Not Available [facility] (Lab) [address] [place], [address], 07/08/2024 13:31:18 07/08/20 24 07/08/2024 COMPR EHENS YANA METAB OLIC PANEL potassium 4.2 mmol/ L 3.5-5. 1 Not Available [facility] (Lab) [address] [place], [address], 07/08/2024 13:31:18 07/08/20 24 07/08/2024 COMPR EHENS YANA METAB OLIC PANEL chloride 109 mmol/ L 98-107 high Not Available [facility] (Lab) [address] [place], [address], 07/08/2024 13:31:18 07/08/20 24 07/08/2024 COMPR EHENS YANA METAB OLIC PANEL carbon dioxide 24 mmol/ L 22-30 Not Available [facility] (Lab) [address] [place], [address], 07/08/2024 13:31:18 07/08/20 24 07/08/2024 COMPR EHENS YANA METAB OLIC PANEL anion gap 12.2 mmol/ L 14-22 low Not Available [facility] (Lab) [address] [place], [address], 07/08/2024 13:31:18 07/08/20 24 07/08/2024 COMPR EHENS YANA METAB OLIC PANEL glucose 117 mg/dL 70-99 high Not Available [facility] (Lab) [address] [place], [address], 07/08/2024 13:31:18 07/08/20 24 07/08/2024 COMPR EHENS YANA METAB OLIC PANEL BUN 13 mg/dL 8-19 Not Available [facility] (Lab) [address] [place], [address], 07/08/2024 13:31:18 07/08/20 24 07/08/2024 COMPR EHENS YANA METAB OLIC PANEL creatinine 0.76 mg/dL 0.66-1 .25 Not Available [facility] (Lab) [address] [place], [address], 07/08/2024 13:31:18 07/08/20 24 07/08/2024 COMPR EHENS YANA METAB OLIC PANEL GFR >60 Refer ence Range : [place] ge GFR Healt hy Adult : >60 mL/mi n/1.7 3 m2 Chron ic Kidne y Disea se: 15-60 mL/mi n/1.7 3 m2 Kidne y Failu re: <15/m L/min /1.73 m2 www.n iddk. nih.g ov The MDRD study equat ion has not been valid ated in child eliot <18 years of age; pregn ant women ; the elder ly >85 years of age; or in some racia l or ethni c subgr oups, such as Hispa nics. Outsi de the valid ated emily eters , estim ated GFR is less accur ate, requi ring clini nikko judgm ent on a case- by-ca se basis . Clini nikko inter preta tion for other races and ages must be made by the clini fab. The MDRD study equat ion has not been valid ated for the evalu ation of serum creat inine relat ed to nutri jamel l statu s or medic ation usage . For perso ns <18 years of age, a pedia tric GFR calcu lator is avail able on the [facility] websi te: https ://ana lilia العلي.o rg/pr ofess ional s/kdo qi/gf r_cal culat or Not Available [facility] (Lab) [address] [place], [address], 07/08/2024 13:31:18 07/08/20 24 07/08/2024 COMPR EHENS YANA METAB OLIC PANEL alkaline phosphatase 104 U/L 38-126 Not Available [facility] (Lab) [address] [place], [address], 07/08/2024 13:31:18 07/08/20 24 07/08/2024 COMPR EHENS YANA METAB OLIC PANEL alanine aminotransfe rase 43 U/L 0-50 Not Available [facility] (Lab) [address] [place], [address], 07/08/2024 13:31:18 07/08/20 24 07/08/2024 COMPR EHENS YANA METAB OLIC PANEL aspartate aminotransfe rase 35 U/L 15-46 Not Available [facility] (Lab) [address] [place], [address], 07/08/2024 13:31:18 07/08/20 24 07/08/2024 COMPR EHENS YANA METAB OLIC PANEL bilirubin, total 0.90 mg/dL 0.20-1 .30 Not Available [facility] (Lab) [address] [place], [address], 07/08/2024 13:31:18 07/08/20 24 07/08/2024 COMPR EHENS YANA METAB OLIC PANEL calcium 9.3 mg/dL 8.4-10 .2 Not Available [facility] (Lab) [address] [place], [address], 07/08/2024 13:31:18 07/08/20 24 07/08/2024 COMPR EHENS YANA METAB OLIC PANEL total protein 7.0 g/dL 6.3-8. 2 Not Available [facility] (Lab) [address] [place], [address], 07/08/2024 13:31:18 07/08/20 24 07/08/2024 COMPR EHENS YANA METAB OLIC PANEL albumin 4.4 g/dL 3.4-5. 0 Not Available [facility] (Lab) [address] [place], [address], 07/08/2024 13:31:18 07/08/20 24 07/08/2024 COMPR EHENS YANA METAB OLIC PANEL globulin 2.6 g/dL 2.6-4. 2 Not Available [facility] (Lab) [address] [place], [address], 07/08/2024 13:31:18 07/08/20 24 07/08/2024 COMPR EHENS YANA METAB OLIC PANEL A/G ratio 1.7 ratio 1.0-2. 0 Not Available [facility] ([facility]) [address], [place], [address], 07/08/2024 13:31:18 05/15/20 24 05/15/2024 CT, abdom en + pelvi s, w/ contr ast No observ ation record ed. [address], [address], 07/03/2024 15:43:14 05/15/20 24 05/15/2024 XR, chest , 2 view No observ ation record ed. [address] [address], [place], [address], 07/03/2024 15:43:14 05/15/20 24 05/15/2024 XR, ribs, unila teral No observ ation record ed. [address] [address], [place], [address], 07/03/2024 15:43:14 07/08/20 24 07/08/2024 XR, chest , 2 view [facility] [address] [place] [address] Patien t Name: MARY KRAMER Access ion #: [id number] Sex: M : 1984 4 Dictat ed By: Radha Giles Attend ing Physic cristhian: RIKY BONDS [facility] Physic cristhian: RIKY BONDS Exam Date: 2023 07:26 AM Exam Name: XR CHEST 2V Admitt ing Diagno sis(es ): CHEST RADIOG RAPH Indica tion: pre-op , pain Techni que: Fronta l and latera l view of the chest was obtain ed Compar gavi: None FINDIN GS: Lines and Tubes: None Lungs: Clear Pleura : No effusi on. No pneumo thorax . Cardio medias tinal contou rs: Unrema rkable Bones: Unrema rkable IMPRES BJ: No eviden ce of acute diseas e. Electr onical ly Signed by: Radha Giles at 2023 07:43: 39 AM Page [email or web address] (Imaging) [address] [place], [address], 07/08/2024 10:12:25 07/08/20 24 07/08/2024 elect amado armandogr am, routi ne ECG, 12 leads min No observ ation record ed. [email or web address] [facility] [address] [place], [address], 10/23/2024 12:23:34 10/24/19 25 10/23/2024 imagi ng/di agnos tic resul t No observ ation record ed. [address], [place], [address], 10/23/2024 16:19:41 Result Notes None recorded. Problems Name Problem SNOMED Code Status Onset Date Resolution Date Notes Provider Name and Address Organization Details Recorded Time History of hypertens ion 854135661 Completed 202112/06/2021 Not Available [facility] 3 19:34:52 Gastroeso phageal reflux disease without esophagit is 806905077 Active 2021 Not Available [facility] 3 19:34:52 Hypertrig lyceridem ia 796599192 Active 2021 Not Available [facility] 3 19:34:52 Effusion of joint of right knee 41519294572 9104 Active 2021 Not Available [facility] 3 19:34:52 Vitamin D deficienc y 42620468 Active 2021 Not Available [facility] 3 19:34:52 Hypertens yana disorder 73533940 Active 2021 [facility] Available [facility] 3 19:34:52 Vertigo 068605900 Active 2021 Not Available [facility] 3 19:34:52 Capillary hemangiom a 225390969 Active 2021 Not Available [facility] 3 19:34:52 Viral labyrinth itis 802163556 Active 2021 Not Available [facility] 3 19:34:52 Viral labyrinth itis 335409562 Active 2021 Not Available [facility] 3 19:34:53 Obesity 191805775 Active 2021 Not Available [facility] 3 19:34:53 Pain of right knee joint 67349434557 4100 Active 2021 Not Available [facility] 3 19:34:53 Upper respirato ry infection 64430935 Active 2021 Not Available [facility] 3 19:34:53 Hyperlipi demia 15072708 Active 2021 Not Available [facility] 3 19:34:53 Liver enzymes level above reference range 559242172 Active 2021 Not Available [facility] 3 19:34:53 Smoker 61384995 Active 2021 Not Available [facility] 3 19:34:53 Obstructi ve sleep apnea syndrome 02498270 Active 2021 Not Available [facility] 3 19:34:53 Frontal headache 969248580 Active 2022 Rc Bonds MD [address], [place], [address] , [facility] 3 17:58:25 Nasal congestio n 23908509 Active 2022 Rc Bonds MD [address], [place], [address] , [facility] 3 17:58:30 Bleeding from nose 564300665 Active 2022 Rc Bonds MD [address], [address], [place], [address] , [place] [facility] 3 17:58:50 Sinusitis 67287817 Active 2022 Rc Bonds MD [address], [address], [place], [address] , [place] [facility] 3 18:07:20 Otalgia of left ear 5458364303 Active 2023 Rc Bonds MD [address], [address], [place], [address] , [place] [facility] 4 17:42:23 Injury of right knee 65907954402 772069 Active 2023 DAVID Galicia [address], [address], [place], [address] , [place] [facility] 4 15:46:24 Malaise and fatigue 274726809 Active 2023 Rc Bonds MD [address], [address], [place], [address] , [place] [facility] 4 15:36:30 Sore throat 731643456 Active 2023 Rc Bonds MD [address], [address], [place], [address] , [place] [facility] 4 12:45:31 Headache 73107281 Active 2023 Rc Bonds MD [address], [address], [place], [address] , [place] [facility] 4 12:45:36 Cough 05155285 Active 2023 Rc Bonds MD [address], [address], [place], [address] , [place] [facility] 4 12:45:47 Bronchiti s 89534461 Active 2023 Rc Bonds MD [address], [address], [place], [address] , [employer] 4 15:48:34 History of right total knee replaceme nt 10045236821 38296 Active 2024 Rc Bonds MD [address], [address], [place], [address] , [employer] [facility] [employer] 5 12:36:29 Problem Notes None recorded. Procedures Surgical History Date Name Laterality Status Provider Name and Address Organization Details Recorded Time 4 Smoking Cessation completed Rc Bonds MD [address], [address], [place], [address], [employer] [facility] [employer] 12/12/2023 16:51:35 3 Smoking Cessation completed Rc Bonds MD [address], [address], [place], [address], [employer] [facility] [employer] 07/02/2023 17:00:11 3 Smoking Cessation completed Rc Bonds MD [address], [address], [place], [address], [employer] [facility] [employer] [facility] [employer] 04/02/2023 16:42:30 3 Smoking Cessation completed Rc Bonds MD [address], [address], [place], [address], [employer] 12/25/2022 18:16:18 3 Smoking Cessation completed Rc Bonds MD [address], [address], [place], [address], [employer] 12/11/2022 18:19:43 5 Ankle Surgery completed Not Available [facility] 2022 19:33:21 Imaging Results Imaging Date Name Status LastModified by Organiz ation Details LastModified Time 05/15/2024 CT, abdomen + pelvis, w/ contrast completed [email or web address], [place], [address], 07/03/2024 15:43:14 05/15/2024 XR, chest, 2 view completed [address] [place] [address], [address], 07/03/2024 15:43:14 05/15/2024 XR, ribs, unilateral completed [email or web address] [place], [place] [address] [address] [place] [address], [address], 07/03/2024 15:43:14 07/08/2024 XR, chest, 2 view completed [email or web address] (Imaging) [address] [place], [address], 07/08/2024 10:12:25 07/08/2024 electrocardiogr am, routine ECG, 12 leads min completed [email or web address] [place], [address], 10/23/2024 12:23:34 10/23/2024 imaging/diagnos tic result active [address], [address], 10/23/2024 16:19:41 Procedure Notes None recorded. Medical Equipment None [...] 2023 active Not Available Not Available Not [facility] Vitals Date Recorded Body height Body mass index (BMI) Body weight Body temperature Heart rate Provider Name and Address Organization Details Last Updated DateTime 01/10/2024 180.34 cm 42.5 kg/m2 634647.0 2 g 98 [degF] 98 /min [employer] [facility] [employer] 17:47:39 Date Recorded Respiratory rate Systolic blood pressure Diastolic blood pressure Provider Name and Address Organization Details Last Updated DateTime 01/10/2024 20 /min 156 mm[Hg] 100 mm[Hg] Rc Bonds MD [address] [facility], [address], [address], [facility] [employer] 01/10/2024 17:57:18 Date Recorded Body height Body mass index (BMI) Body weight Body temperature Heart rate Oxygen saturation Oxygen saturation in Arterial blood by Pulse oximetry Systolic blood pressure Diastolic blood pressure Provider Name and Address Organization Details Last Updated DateTime 180.34 cm 44.4 kg/m2 175633. 72 g 98.2 [degF] 78 /min 98 % 98 % 146 mm[Hg] 96 mm[Hg] Dwain Cooper [facility] [place] [employer] 12:55:58 Date Recorded Respiratory rate Provider Name a va Address Organization Details Last Updated DateTime 04/30/2024 20 /min Agus Chapa [address] [facility] [address], [address], [facility] [employer] [facility] 04/30/2024 12:58:24 Date Recorded Body height Body mass index (BMI) Body weight Body temperature Provider Name and Address Organization Details Last Updated DateTime 07/03/2024 180.34 cm 44.8 kg/m2 360154.5 g 97.2 [degF] Tricia Oleary RN [facility] [employer] [facility] 07/03/2024 15:35:27 Date Recorded Oxygen saturation Oxygen saturation in Arterial blood by Pulse oximetry Heart rate Systolic blood pressure Diastolic blood pressure Provider Name and Address Organization Details Last Updated DateTime 4 97 % 97 % 96 /min 136 mm[Hg] 70 mm[Hg] Rc Bonds MD [address], [facility] [address], [place], [address], [employer] 4 16:45:35 Date Recorded Body height Body mass index (BMI) Body weight Body temperature Oxygen saturation Oxygen saturation in Arterial blood by Pulse oximetry Heart rate Systolic blood pressure Diastolic blood pressure Provider Name and Address Organization Details Last Updated DateTime 5 180.34 cm 42.3 kg/m2 273378. 64 g 97 [degF] 96 % 96 % 90 /min 130 mm[Hg] 84 mm[Hg] Tricia Oleary RN [employer] [facility] [place] [employer] 5 12:18:34 Social History Question Answer Notes LastModified by Organizat ion Details LastModified Time Tobacco Smoking Status Current Some Day Smoker Not Available [facility] 09/20/2022 19:33:12 Do You Have An Advance Directive? No MIGRATION.[id number] Information not available 09/20/2022 What Is Your Level Of Alcohol Consumption? Occasional MIGRATION.31450 87881 Information not available 09/20/2022 Do You Wear A Helmet When Biking? No MIGRATION.08265 87166 Information not available 09/20/2022 What Is Your Level Of Caffeine Consumption? Moderate MIGRATION.71282 16169 Information not available 09/20/2022 In The 14 Days Before Symptom Onset, Have You Had Close Contact With A Laboratory-confir med COVID-19 While That Case Was Ill? No MIGRATION.73544 56060 Information not available 09/20/2022 In The 14 Days Before Symptom Onset, Have You Had Close Contact With A Person Who Is Under Investigation For COVID-19 While That Person Was Ill? No MIGRATION.50496 34346 Information not available 09/20/2022 What Type Of Diet Are You Following? REGULAR MIGRATION.79624 93367 Information not available 09/20/2022 What Is The Highest Grade Or Level Of School You Have Completed Or The Highest Degree You Have Received? PN75740-3 MIGRATION. 62985 Information not available 09/20/2022 Have There Been Any Changes To Your Family Or Social Situation? No MIGRATION.98185 04549 Information not available 09/20/2022 What Is The Fluoride Status Of Your Home? Unknown MIGRATION.41989 13059 Information not available 09/20/2022 Are There Any Guns Present In Your Home? No MIGRATION.05371 76566 Information not available 09/20/2022 Do You Use Insect Repellent Routinely? No MIGRATION.56255 57648 Information not available 09/20/2022 Do You Have A Medical Power Of Dock Coordinator? No MIGRATION.02266 93510 Information not available 09/20/2022 Have You Ever Been Counseled For Unhealthy Alcohol Use? No MIGRATION.40122 91050 Information not available 09/20/2022 Do You Have Any Pets? Yes MIGRATION.68731 08890 Information not available 09/20/2022 What Is Your Relationship Status? MIGRATION.23564 06787 Information not available 09/20/2022 Do You Use Your Seat Belt Or Car Seat Routinely? Yes MIGRATION.22315 64332 Information not available 09/20/2022 Do You Have Smoke And Carbon Monoxide Detectors In Your Home? Yes MIGRATION.15759 78914 Information not available 09/20/2022 Are You Passively Exposed To Smoke? Yes MIGRATION.30769 85806 Information not available 09/20/2022 Are There Any Smokers In Your House? No MIGRATION.67780 27688 Information not available 09/20/2022 How Much Tobacco Do You Smoke? 1 PPD Only When Pt Decides To Smoke And Drink MIGRATION.16655 82035 Information not available 09/20/2022 Do You Participate In Social Media? Yes MIGRATION.70010 86212 Information not available 09/20/2022 Do You Feel Stressed (tense, Restless, Nervous, Or Anxious, Or Unable To Sleep At Night)? TS23473-5 [email or web address] Information not available 10/18/2023 Do You Use Any Illicit Or Recreational Drugs? No MIGRATION.15977 16871 Information not available 09/20/2022 Do You Use Sunscreen Routinely? No MIGRATION.75332 38214 Information not available 09/20/2022 Has Tobacco Cessation Counseling Been Provided? No MIGRATION.55292 76303 Information not available 09/20/2022 Have You Recently Traveled Abroad? No MIGRATION.91100 89976 Information not available 09/20/2022 Are You Currently In School? No MIGRATION.03848 21919 Information not available 09/20/2022 Do You Have Any Dietary Restrictions? No MIGRATION.26184 77576 Information not available 09/20/2022 Do You Or Have You Ever Used Any Other Forms Of Tobacco Or Nicotine? No MIGRATION.50010 11124 Information not available 09/20/2022 Sex: Male Functional Status Question Answer Note LastModified by Organizat ion Details LastModified Time What is your exercise level? None MIGRATION.[id number] Information not available 09/20/2022 Mental Status None recorded. Family History Relationship Description Onset Age of this Age Resolved Age Notes LastModified by Organization Details LastModified Time Father Hypertensive disorder MIGRATION.644 [id number] Not available 09/20/2022 19:33:21 Medical History Condition Response HYPOTENSION Y HEARTBURN / REFLUX Y HYPERTENSION Y Immunizations Vaccine Type Date Status Note Provider Nam e and Address Organization Details Recorded Time Tdap 12/21/2021 completed Not Available [facility] 09/20/2022 19:37:07 Past Encounters Encounter ID Performer Location Encounter Start Date Encounter Closed Date Diagnosis/Indication Diagnosis SNOMED-CT Code Diagnosis ICD10 Code Diagnosis Note [id number] [facility] [address] [place] [id number] 1 12/06/2021 00:00:00 12/06/2021 18:19:28 [id number] [facility] [address] [place] [id number] 1 12/09/2021 00:00:00 12/09/2021 14:04:37 [id number] [facility] [address] [place] [id number] 1 12/21/2021 00:00:00 12/21/2021 18:18:56 [id number] [facility] [address] [place] [id number] 1 02/20/2022 00:00:00 02/20/2022 18:19:33 [id number] [facility] [address] [place] [address] 1 07/03/2022 00:00:00 07/03/2022 17:39:11 [id number] [facility] [address] [place] [address] 1 08/08/2022 00:00:00 08/08/2022 08:47:46 [id number] [facility] [address] [place] [id number] 1 08/14/2022 00:00:00 08/14/2022 18:16:51 [id number] Rc Bonds MD [address] [address] 12/11/2022 18:04:39 12/11/2022 18:20:19 Adult health examination 176397717 Z00.00 Vitamin D deficiency 347 58562 E55.9 Obesity 846051159 E66.9 Smoker 33561136 F17.200 [id number] Rc Bonds MD [address] [address] 1 12/22/2022 08:36:18 12/22/2022 09:01:36 [id number] Rc Bonds MD [address] [address] 1 12/25/2022 18:00:55 12/25/2022 18:16:10 Vitamin D deficiency 17046307 E55.9 Obesity 320136646 E66.9 Smoker 98111940 F17.200 Hyperlipidemia 28776328 E78.5 Hypertriglyceridemia 302 323916 E78.2 Hypertensive disorder 38 760578 I10 [id number] Rc Bonds MD [facility] [address] [place] [address] 1 04/02/2023 17:54:11 04/02/2023 18:09:44 Vitamin D deficiency 17185825 E55.9 Hyperlipidemia 00441964 E78.5 Hypertriglyceridemia 302 246622 E78.2 Obesity 255545867 E66.9 Smoker 44789968 F17.200 Hypertensive disorder 38 784556 I10 [id number] Rc Bonds MD [address] [address] 1 05/15/2023 17:54:43 05/15/2023 18:15:34 Frontal headache 722310839 R51.9 Nasal congestion 2139495 0 R09.81 Bleeding from nose 31540 6005 R04.0 Sinusitis 80629489 J32.9 [id number] Rc Bonds MD [address] [address] 1 06/27/2023 08:25:29 06/27/2023 09:17:39 [id number] Rc Bonds MD [address] [address] 1 07/02/2023 17:54:17 07/02/2023 18:09:25 Hypertensive disorder 86591207 I10 Hyperlipidemia 16956044 E78.5 Hypertriglyceridemia 302 221491 E78.2 Vitamin D deficiency 347 21156 E55.9 Obesity 318046310 E66.9 Smoker 23214122 F17.408 [id number] Rc Bonds MD [address] [address] 1 10/02/2023 08:19:27 10/02/2023 08:31:43 [id number] Rc Bonds MD [address] [address] 1 10/03/2023 17:26:46 10/03/2023 17:53:44 Hypertriglyceridemia 695194770 E78.2 Hyperlipidemia 59788431 E78.5 Hypertensive disorder 38 722341 I10 Vitamin D deficiency 347 28033 E55.9 Obesity 934536056 E66.9 Smoker 95735389 F17.200 Otalgia of left ear 1010 676727 H92.02 [id number] DAVID Galicia [address] [address] 1 10/18/2023 14:19:50 10/19/2023 08:24:09 Pain of right knee joint 2032639731 35527 M25.561 Injury of right knee 548 0867783 0310452 S89.91XA [id number] Rc Bonds MD [address] [address] 11/19/2023 15:07:21 11/19/2023 15:41:35 Sinusitis 41506657 J32.9 Nasal congestion 3297533 0 R09.81 Malaise and fatigue 2717 33460 R53.81 [id number] Rc Bonds MD [address] [address] 1 12/12/2023 17:25:21 12/12/2023 17:55:59 Hypertriglyceridemia 555221218 E78.2 Hyperlipidemia 60676900 E78.5 Hypertensive disorder 38 502481 I10 Vitamin D deficiency 347 49608 E55.9 Obesity 555870601 E66.9 Smoker 34131013 F17.200 Adult [facility] th examination 996435313 Z00.00 [id number] Rc Bonds MD [address] [address] 1 01/08/2024 08:57:55 01/08/2024 09:34:08 [id number] Rc Bonds MD [address] [address] 1 01/10/2024 17:42:06 01/10/2024 17:57:59 Hypertriglyceridemia 076435101 E78.2 Hyperlipidemia 06378285 E78.5 Hypertensive disorder 38 744605 I10 Vitamin D deficiency 347 11627 E55.9 Improved Obesity 714843491 E66.9 Smoker 97289144 F17.200 Gastroesop hageal reflux disease without esophagitis 068032763 K21.9 [id number] Rc Bonds MD [address] [address] 1 04/30/2024 12:40:41 04/30/2024 13:55:26 Sore throat 209102371 J02.9 Headache 34395646 R51.9 Sinusitis 37106964 J32.9 Cough 04323969 R05.9 [id number] Rc Bonds MD [address] [address] 1 07/03/2024 15:24:14 07/03/2024 16:19:15 Pre-surgery evaluation 321831781 Z01.818 Bronchitis 67115396 J40 Cough 41475629 R05.9 Pain of ri ght knee joint 3628596040 91521 M25.561 Chronic Accident w hile engaged in work-related activity 00666090 X58.XXXD Obesity 411728506 E66.9 Vitamin D deficiency 347 27797 E55.9 Improved [id number] Rc Bonds MD [address] [address] 1 07/08/2024 09:11:29 07/08/2024 09:14:23 [id number] Rc Bonds MD [address] [address] 1 10/23/2024 12:06:56 10/23/2024 12:39:59 Accident while engaged in work-related activity 42139956 X58.XXXD Pain of ri ght knee joint 5708298540 67242 M25.561 Chronic Vitamin D deficiency 347 21249 E55.9 Improved Obesity 328564335 E66.9 Hyperlipidemia 03319024 E78.5 Hypertensive disorder 38 170751 I10 History of right total knee replacement 5520100561 235786 Z96.651 06/2024 Health Concerns Section Related Observation LastModified by Organization Detai ls LastModified Time None Recorded Concern Status LastModified by Organization Details LastModified Time None Recorded Advance Directives Directive N: Payers Encounter Date Sequence Insurance Name Policy Number Policy Galvan Covered Member ID Galvan Member ID Guarantor Name 01/10/2024 1 [facility] - [facility] B[employer]EFITS MANAGEMENT [id number] Mary Kramer [id number] Mayr Kramer 01/10/2024 2 [facility] - DOS PRIOR TO 2024 - [employer] () [place] [id number] Mary Kramer 04/30/2024 1 [facility] - [employer]ENEFITS MANAGEMENT [id number] Mary Williams [id number] [id number] Mary Williams 04/30/2024 2 [facility] - DOS PRIOR TO 2024 - [employer] () [place] [id number] Mary [place] 07/03/2024 2 [facility] - DOS PRIOR TO 2024 - [employer] () Chelle Williams [id number] Mary [place] 07/03/2024 [employer] Mary [place] Mary Williams 07/08/2024 1 [facility] [employer]ITS [employer]NAGEMENT [id number] Mary [place] [id number] 03-24 Mary [place] 07/08/2024 2 [facility] - DOS PRIOR TO 2024 - [employer] () [place] [id number] Mary [place] 10/23/[address] [facility] [id number] Mary Williams [id number] 03-24 Mary [place] 10/23/2024 2 FOR LIFE () Mary Williams [id number] [facility] Williams Notes Date Note Type Note Provider Name and Address Organization Details Recorded Time 01/10/2024 text/html Pt is here with his for f/u on his annual labs. Doing overall well. Denies any problem with meds.Pt is checking his BP at home and its still higher. Pt is not taking his Vascepa regularly.Pt has JOSÉ MIGUEL and has Cpap at home, but he is not using it. Rc Bonds MD [address] [place] [address], [place] [address], [place], [address], [facility] [employer] 01/10/2024 17:59:38 04/30/2024 text/html ACV: C/o cough, congestion, sore throat, sinus pressure, fatigue for last 8-9 days. Pt denies any known sick contact. Pt has been doing otc meds, but still not getting better. Rc Bonds MD [address], [facility] [address], [place], [address], [facility] [employer] [facility] [employer] [facility] 04/30/2024 13:07:43 07/03/2024 text/html Pre-op exam + ACV:Here with . C/o cough, congestion, fatigue, yellowish sputum since yesterday. Pt's and kids were sick last week and now he got it. They are doing better now. Pt did covid test and its neg as per . Denies any chest pain/sob/n/v/d/pal pitations/urinary symptoms. Pt needs pre-op clearance for his Rt TKR with her [employer] [facility]o on 07/18/24. Pt says he has waited a long time and he got trust and estates attorney involved to get this surgery approved and so he doesn't want to Post-pone this. Pt had a injury to his Rt knee on 10/09/23 and had Rt tibial plaetu fracture while he was at his work and since , he is f/u under Anna Lozabai with Ortho - Dr. Prakash - at [place], [place]. Pt is not able to go to his work since this. So pt is going to get Rt TKR Rc Bonds MD [address], [facility] [address], [place], [address], [employer] [facility] [id number] 07/03/2024 16:51:27 10/23/2024 text/html Pt is here with his for f/u on his labs, meds and chronic conditions. Doing overall better. Denies any problem with meds. Pt wants to get his lab done today. Pt got Rt TKR with his [employer] [facility] Orthopedist on 07/18/24. Pt had a injury to his Rt knee on 10/09/23 and had Rt tibial plate fracture while he was at his work and since , he is f/u under Anna Lozabai with Ortho - Dr. Prakash - at [place], [place]. Pt is not able to go to his work since this. Rc Bonds MD [address], [facility] [address], [place], [address], [place] [facility] 10/23/2024 12:38:15
[2024-10-23 15:30] LABS: Alanine Aminotransferase 53 U/L (6-50); Albumin Level 4.8 g/dL (3.5-5.1); Alkaline Phosphatase 112 U/L (38-126); Anion Gap 15 mmol/L (4-12); Aspartate Amino Transferase 40 U/L (17-59); Bilirubin,Total 1.1 mg/dL (0.2-1.3); Blood Urea Nitrogen 15 mg/dL (9-20); Calcium 9.3 mg/dL (8.4-10.2); Carbon Dioxide 22 mmol/L (22-30); Chloride 104 mmol/L (98-107); Estimated CRCL calculation 137 ml/min; Estimated Glomerular Filt Rate > 60; Glucose 136 mg/dL (65-110); Potassium 3.4 mmol/L (3.4-5.0); Sodium 141 mmol/L (137-145)
--- NOTE | 2024-10-23 19:30 | ED_ITS ---
HPI - General Adult General Chief complaint: Upper Respiratory Infection Stated complaint: Facial swelling, shortness of breath, dizziness Time Seen by Provider: 10/23/24 14:44 History of Present Illness HPI narrative: Patient is a 39-year-old male who presents ER with swelling of his lower lip. Sudden onset just prior to arrival. Thinks he may be mildly short of breath and can not get a full breath but he has no wheezing. No difficulty breathing or swelling. No the tongue swelling. No change in voice or speech. He does take lisinopril. He is not yet taking it today, last dose was yesterday. No other exposures that he can think of. Related Data Home Medications ?Medication ?Instructions ?Recorded ?Confirmed ?Last Taken ?Type atorvastatin 20 mg tablet 20 mg PO DAILY 06/11/22 11/21/22 Unknown History ergocalciferol (vitamin D2) 1,250 1,250 mcg PO WEEKLY 06/11/22 11/21/22 Unknown History mcg (50,000 unit) capsule omeprazole 20 mg capsule,delayed 20 mg PO DAILY 06/11/22 11/21/22 Unknown History release Allergies Allergy/AdvReac Type Severity Reaction Status Date / Time No Known Allergies Allergy Verified 10/23/24 14:36 Review of Systems 2 Review of Systems: All systems reviewed & are unremarkable except as noted in HPI and below Constitutional: Constitutional: Reports no additional constitutional complaints ENT: Reports system reviewed and no additional complaints, except as documented Cardiovascular: Cardiovascular: Reports no additional cardiovascular complaints Respiratory: Respiratory: Reports no additional respiratory complaints Allergic/Immunologic: Allergic/Immunologic: Reports no additional allergic/immunologic complaints [facility] Past Medical History Medical History Hypertension Surgical History Surgical History History of ankle surgery Social History Social History Smoking status: Current every day smoker Tobacco type: cigarettes Alcohol intake: current Substance use: never Gender identity (if verbalized by the patient): Male Exam 2 Narrative: GENERAL: Well-appearing, well-nourished, and in no acute distress. HEAD: Normocephalic, atraumatic. ENT: Mucous membranes moist. Angioedema of the lower lip. No angioedema of the tongue. Normal appearing posterior oropharynx. NECK: Supple. CHEST: Clear to auscultation. No respiratory distress. HEART: Regular rate and rhythm. Normal peripheral pulses. ABDOMEN: Soft, nontender, nondistended. EXTREMITIES: Normal range of motion. No edema. SKIN: Warm, dry, no rash. NEURO: Alert and oriented x3. PSYCH: Normal mood and affect. Course Course Emergency Course: Patient responded well to epinephrine/famotidine/Benadryl/Solu-Medrol. Lip has essentially normalized after 4 hours of observation. Appropriate for discharge home. Discussed discontinuation of lisinopril and following up with PCP. Vital Signs Vital signs: Vital Signs Temperature 98.7 F 10/23/24 14:36 Pulse Rate 99 10/23/24 14:36 Respiratory Rate 18 10/23/24 14:36 Blood Pressure 147/88 H 10/23/24 14:36 Pulse Oximetry 96 10/23/24 14:36 Oxygen Delivery Room Air 10/23/24 14:36 Temperature 97.9 F 10/23/24 18:00 Pulse Rate 88 10/23/24 20:01 Respiratory Rate 16 10/23/24 20:01 Blood Pressure 166/88 H 10/23/24 20:01 Pulse Oximetry 99 10/23/24 20:01 Oxygen Delivery Room Air 10/23/24 16:56 Medical Decision Making Vital Signs Vital Signs: Vital Signs Temperature 98.7 F 10/23/24 14:36 Pulse Rate 99 10/23/24 14:36 Respiratory Rate 18 10/23/24 14:36 Blood Pressure 147/88 H 10/23/24 14:36 Pulse Oximetry 96 10/23/24 14:36 Oxygen Delivery Room Air 10/23/24 14:36 Temperature 97.9 F 10/23/24 18:00 Pulse Rate 88 10/23/24 20:01 Respiratory Rate 16 10/23/24 20:01 Blood Pressure 166/88 H 10/23/24 20:01 Pulse Oximetry 99 10/23/24 20:01 Oxygen Delivery Room Air 10/23/24 16:56 Lab Data 10/23/24 15:10 10/23/24 15:10 Labs: Lab Results 10/23/24 Range/Units 15:10 WBC 8.5 (4.5-10.0) K/mm3 RBC 5.62 (4.6-6.20) M/mm3 Hgb 15.3 (14.0-18.0) g/dL Hct 45.7 (42.0-52.0) % MCV 81.3 (80-100) fl MCH 27.2 (26-34) pg MCHC 33.5 (32-36) g/dl RDW 12.9 (11.5-14.5) % Plt Count 256 (150-375) k/mm3 MPV 9.3 (7.4-10.4) fl Immature Gran % (Auto) 0.4 (0-0.5) % Neut % (Auto) 60.5 (45.5-73.1) % Lymph % (Auto) 31.2 (18.3-44.2) % Ripley % (Auto) 5.0 (2.6-8.5) % Eos % (Auto) 2.5 (0-4.4) % Baso % (Auto) 0.4 (0.2-1.2) % Lymph # (Auto) 2.66 (0.9-3.2) K/mm3 Ripley # (Auto) 0.4 (0.1-0.6) K/mm3 Eos # (Auto) 0.2 (0-0.3) K/mm3 Baso # (Auto) 0.0 (0.0-0.1) K/mm3 Abs Immat Gran (auto) 0.03 (0.00-0.031) K/mm3 Absolute Neuts (auto) 5.2 (1.3-6.7) K/mm3 Absolute Nucleated RBC 0.000 (0.0-0.012) K/mm3 Nucleated RBC % 0.0 (0.0-0.2) % Sodium 141 (137-145) mmol/L Potassium 3.4 (3.4-5.0) mmol/L Chloride 104 (98-107) mmol/L Carbon Dioxide 22 (22-30) mmol/L Anion Gap 15 H (4-12) mmol/L BUN 15 (9-20) mg/dL Creatinine 0.88 (0.7-1.3) mg/dL Estim Creat Clear Calc 137 ml/min Estimated GFR > 60 (59 - ) Glucose 136 H (65-110) mg/dL Calcium 9.3 (8.4-10.2) mg/dL Total Bilirubin 1.1 (0.2-1.3) mg/dL AST 40 (17-59) U/L ALT 53 H (6-50) U/L Alkaline Phosphatase 112 (38-126) U/L Total Protein 8.0 (6.3-8.2) g/dL Albumin 4.8 (3.5-5.1) g/dL Imaging Data Radiologist's impression: ITS Impressions Chest X-Ray 10/23/24 15:16 IMPRESSION: No focal infiltrate or effusion. Discharge Plan Discharge Clinical Impression: HEMA inhibitor-aggravated angioedema Patient Disposition: Home, Self-Care Condition: Stable Instructions: Angioedema (ED) Additional Instructions: Stop taking LISINOPRIL. This likely caused your lip swelling. Follow-up with your doctor to start a new medication. Return to the ER if he cannot breathe, you cannot swallow, or you have worsening swelling. Patient Language: Slovenian Prescriptions: New prednisone 50 mg tablet 50 mg PO DAILY Qty: 5 0RF Discontinued lisinopril 10 mg tablet 10 mg PO DAILY No Action atorvastatin 20 mg tablet 20 mg PO DAILY omeprazole 20 mg capsule,delayed release(DR/EC) 20 mg PO DAILY ergocalciferol (vitamin D2) 1,250 mcg (50,000 unit) capsule 1,250 mcg PO WEEKLY methylprednisolone [Medrol (Ceferino)] 4 mg tablets,dose pack See Rx Instructions .ROUTE .COMPLEX Qty: 21 0RF Rx Instructions: orally per package directions naproxen [Naprosyn] 500 mg tablet 500 mg PO BID PRN (Reason: pain) Qty: 14 0RF cyclobenzaprine 10 mg tablet 10 mg PO TID PRN (Reason: muscle spasm) Qty: 20 0RF Follow-up/Referrals: Vamshi,MD Rc [Primary Care Provider] - 1 Week
== END 2024-10-23 20:03 | disposition home or self-care (01) ==
PROVIDERS: Emergency Provider Emergency Medicine; PCP Family Medicine
DX: T78.3XXA Angioneurotic edema, initial encounter (principal); T46.4X5A Adverse effect of angiotensin-converting-enzyme inhibitors, initial encounter; I10 Essential (primary) hypertension; F17.210 Nicotine dependence, cigarettes, uncomplicated; R94.31 Abnormal electrocardiogram [ECG] [EKG]
CPT/HCPCS: 36415; 71045; 80053; 85025; 93005; 96374; 96375; 99284; J0171; J1200; J2919